=== PATIENT | male | born 1955 | race African-American/Black ===

== ENCOUNTER → 2020-03-22 10:53 | Outpatient (BNVA) | payer OTHER, SELFPAY | PROVIDERS: PCP Nurse Practitioner Family; Visit Provider Urology | DX: Z76.89 Persons encountering health services in other specified circumstances (principal) ==

== ENCOUNTER → 2020-06-29 10:17 | Outpatient (REF) | payer OTHER, SELFPAY ==
--- NOTE | 2020-06-29 09:30 | ECG_ITS ---
Hook-up date: 2020-06-29 10:33:00 Duration: 47:59:00 Test Indications: PAC'S Medications: [id number] QRS complexes 9 Ventricular ectopics which represent <1 % of total QRS comp. 255 Supraventricular ectopics which represent <1 % of total QRS comp. * Paced QRS complexs which represent % of total QRS comp. VENTRICULAR ECTOPY 2 Isolated 0 Bigeminal Cycles 0 Couplets 1 Runs 7 Beats in Runs 7 Beats LONGEST at 173 BPM at 18:51:24 2020-06-29 7 Beats FASTEST at 173 BPM at 18:51:24 2020-06-29 SUPRAVENTRICULAR ECTOPY 248 Isolated 2 Couplets 1 Runs 3 Beats in Runs 3 Beats LONGEST at 148 BPM at 18:04:10 2020-06-29 3 Beats FASTEST at 148 BPM at 18:04:10 2020-06-29 HEART RATES 56 MIN at 05:04:20 2020-06-30 79 AVG 121 MAX at 18:59:43 2020-06-29 LONGEST RR 1.5120 secs at 20:00:40 2020-06-29 S-T LEVELS Channel 1 - 128 mm at 10:33:00 2020-06-29 - 128 mm at 10:33:00 2020-06-29 Channel 2 - 128 mm at 10:33:00 2020-06-29 - 128 mm at 10:33:00 2020-06-29 Channel 3 - 128 mm at 02:95:21 -- - 128 mm at 02:95:21 Underlying rhythm is sinus; Average ventricular rate 79/min; range 56-121/min; Occasional supraventricular ectopy; One short run of NSVT -7 beats; Patient did not report any symptoms in the diary Referred By: Sancho Rosenthal Overread By: SANCHO ROSENTHAL
== END ==
LOC: HO.CARD 10:17
PROVIDERS: PCP Nurse Practitioner Family; Visit Provider Internal Medicine
DX: I49.1 Atrial premature depolarization (principal)
CPT/HCPCS: 93225; 93226

== ENCOUNTER → 2020-08-02 08:18 | Outpatient (BNVA) | payer OTHER, SELFPAY | PROVIDERS: PCP Internal Medicine Endocrinology, Diabetes & Metabolism; Visit Provider Internal Medicine | DX: I49.8 Other specified cardiac arrhythmias (principal); I49.3 Ventricular premature depolarization; I10 Essential (primary) hypertension; E66.01 Morbid (severe) obesity due to excess calories | CPT/HCPCS: 93005; 99212 ==

== ENCOUNTER → 2021-04-03 11:07 | Outpatient (BNVA) | payer OTHER, SELFPAY | PROVIDERS: PCP Internal Medicine Endocrinology, Diabetes & Metabolism; Visit Provider Urology | DX: N50.3 Cyst of epididymis (principal) | CPT/HCPCS: 99212 ==

== ENCOUNTER → 2021-05-14 15:23 | Outpatient (BNVA) | payer OTHER, SELFPAY | PROVIDERS: PCP Internal Medicine Endocrinology, Diabetes & Metabolism; Visit Provider Urology ==

== ENCOUNTER → 2021-07-15 12:38 | Outpatient (REF) | payer OTHER, SELFPAY ==
--- NOTE | 2021-07-15 12:42 | ECG_ITS ---
Hook-up date: 2021-07-15 12:52:00 Duration: 45:44:00 Test Indications: CARDIAC ARRHYTHMIAS Medications: [id number] QRS complexes * Ventricular ectopics which represent % of total QRS comp. 66 Supraventricular ectopics which represent <1 % of total QRS comp. * Paced QRS complexs which represent % of total QRS comp. VENTRICULAR ECTOPY * Isolated * Bigeminal Cycles * Couplets * Runs * Beats in Runs * Beats LONGEST at * BPM at :: -- * Beats FASTEST at * BPM at :: -- SUPRAVENTRICULAR ECTOPY 62 Isolated 2 Couplets 0 Runs 0 Beats in Runs * Beats LONGEST at * BPM at :: -- * Beats FASTEST at * BPM at :: -- HEART RATES 61 MIN at 01:12:38 2021-07-16 84 AVG 139 MAX at 12:54:02 2021-07-15 LONGEST RR 1.0960 secs at 11:00:12 2021-07-16 S-T LEVELS Channel 1 - 128 mm at 12:52:00 2021-07-15 - 128 mm at 12:52:00 2021-07-15 Channel 2 - 128 mm at 12:52:00 2021-07-15 - 128 mm at 12:52:00 2021-07-15 Channel 3 - 128 mm at 03:21:11 -- - 128 mm at 03:21:11 Underlying rhythm is sinus; Average ventricular rate 84/min; range 61-139/min; Rare supraventricular ectopy; No sustained arrhythmias. Chest pain in diary associated with sinus rhythm on EKG. Referred By: Sancho Rosenhtal Overread By: SANCHO ROSENTHAL
== END ==
LOC: HO.CARD 12:38
PROVIDERS: PCP Nurse Practitioner Family; Visit Provider Internal Medicine
DX: I49.8 Other specified cardiac arrhythmias (principal)
CPT/HCPCS: 93225; 93226

== ENCOUNTER → 2021-07-17 09:40 | Outpatient (REF) | payer OTHER, SELFPAY ==
--- NOTE | 2021-07-17 09:42 | CA_ITS ---
Transthoracic Echocardiogram Patient (Last, First, Middle): Diego Aviles, Gender: Male Date of : 1955 Age: 66 Procedure Date: 07/17/2021 Procedure Type: Transthoracic Echocardiogram Location: OP Height: 180.34 cm Weight: 143.79 kg BSA: 2.56 m2 Heart Rate: bpm BP: 130 / 88 mmHg Supervisor Cordu[employer] Cutting: MICHELLE Referring MD: Tang Rouse MD Payroll And Benefits Specialist: Shimon Og MD Symptoms: I49.8 - Other specified cardiac arrhythmias Study Quality: Technically Difficult ECG Rhythm: Sinus Conclusions: - 1. Normal LV systolic function with mild LVH with grade 1 diastolic dysfunction 2. Cardiac valvular Doppler is within normal limits 3. Normal RV systolic pressure 4. No gross pericardial effusion Findings Left Ventricle Normal left ventricular size and systolic function. There is mildly increased left ventricular wall thickness. The visually estimated ejection fraction is between 60-65%. Regional wall motion abnormalities can not be excluded due to suboptimal endocardial definition. Spectral Doppler is indicative of an impaired relaxation filling pattern. E/E prime ratio is <8, consistent with normal filling pressures. Evidence suggests grade I (mild) diastolic dysfunction. Right Ventricle Normal right ventricular cavity size and systolic function. Atria The left atrium is likely dilated. Interatrial shunt cannot be excluded. The right atrium was not well visualized. Aortic Valve There is mild calcification of the aortic valve. There is mild thickening of the aortic valve. There is no aortic valve stenosis. The peak aortic gradient is 17 mmHg.The mean gradient is 10 mmHg. There is no aortic valve regurgitation. Mitral Valve There is mild anterior and posterior mitral leaflet thickening. There is trace mitral valve regurgitation. There is no mitral valve stenosis. Pulmonic Valve The pulmonic valve was not well visualized. Tricuspid Valve Likely normal tricuspid valve structure and function. There is trace tricuspid valve regurgitation. The right ventricular systolic pressure is normal. The right ventricular systolic pressure is 14 mmHg. Normal right atrial pressure. There is no evidence of pulmonary hypertension. Great Vessels All visible segments of the aorta are normal in size. The pulmonary artery was not well visualized. Venous The inferior vena cava is normal in size and collapses greater than 50% with inspiration. Pericardium/Pleural There is no evidence of pericardial effusion. Prior Study Comparison No significant change compared to prior study dated: 06/28/2019. Measurements 2D Linear Measurements IVSd: 1.26 0.6-0.9/0.6-1.0 cm LVIDd: 4.69 3.9-5.3/4.2-5.9 cm LVIDd Index: 1.83 2.4-3.2/2.2-3.1 cm/m2 LVIDs: 3.13 2.0-3.6 cm LVPWd: 1.07 0.7-1.1 cm Ao Root: 3.30 2.1-3.5 cm LA Diam: 3.00 2.7-3.8/3.0-4.0 cm LAIDs Index: 1.17 1.5-2.3 cm/m2 LV Mass: 252.50 67-162/88-224 g LV Mass Index: 98.63 43-95/49-115 g/m2 LVOT Diam: 2.10 3.0+(-)1.3 cm 2D Systolic Function EF 4C: 61.20 >55% EF 2C: 61.00 >55% EF BiP: 59.90 >55% Mitral Valve MV Pk E: 0.62 MV PK A: 0.89 MV Decel Time: 185.00 E/A: 0.70 E'Lateral: 9.14 E'Medial: 7.94 E/E' Med: 7.90 E/E' Lat: 6.80 PHT: 54.00 MVA PHT: 4.07 Decel [place]: 3.38 Aortic Valve AoV Pk [place]: 2.08 AoV Mn [place]: 1.48 AoV VTI: 0.45 AoV Pk Grad: 17.00 Aov Mn Grad: 10.00 RONNI Cont.VTI: 2.33 LVOT LVOT Pk [place]: 1.41 LVOT Mn [place]: 0.99 LVOT VTI: 0.30 LVOT Pk Grad: 8.00 LVOT Mn Grad: 5.00 LVOT Diam: 2.10 LVOT Area: 3.46 Diastolic Function MV Pk E: 0.62 MV Pk A: 0.89 E/A: 0.70 E'Medial: 7.94 E/E' Med: 7.90 E' Laterial: 9.14 E/E' Lat: 6.80 Right Ventricle TAPSE (mm): 23.40 TVS' Lar[place]: 14.50 Tricuspid Valve TR Pk Lar[place]: 1.64 TR Pk Grad: 11.00 RA Press: 3.00 RVSP: 14.00 Great Vessels Aorta Ao Root-2D: 3.30 2.0-3.7 cm Ao Asc: 3.70 2.1-3.4 cm Ao Arch: 3.30 Pulmonary Valve PV Pk Laron: 1.33 Peak PV Grad: 7.00 Updated in Other Vendor System with Status of Final Shimon Og MD electronically signed on 07/17/2021 2:02:16 PM with status of Final
== END ==
LOC: HO.CARD 09:40
PROVIDERS: PCP Nurse Practitioner Family; Visit Provider Internal Medicine
DX: I49.8 Other specified cardiac arrhythmias (principal)
CPT/HCPCS: 93306

== ENCOUNTER → 2021-08-05 08:41 | Outpatient (BNVA) | payer OTHER, SELFPAY | PROVIDERS: PCP Internal Medicine Endocrinology, Diabetes & Metabolism; Visit Provider Internal Medicine | DX: I49.8 Other specified cardiac arrhythmias (principal); I49.3 Ventricular premature depolarization; I10 Essential (primary) hypertension; E66.01 Morbid (severe) obesity due to excess calories; G47.33 Obstructive sleep apnea (adult) (pediatric); Z99.89 Dependence on other enabling machines and devices; Z68.42 Body mass index [BMI] 45.0-49.9, adult | CPT/HCPCS: 93005; 99212 ==

== ENCOUNTER 2022-08-18 06:05 | Outpatient (REF) | payer OTHER, SELFPAY ==
[2022-08-18 07:25] LABS: Hematocrit 46.5 % (42.0-52.0); Hemoglobin 14.6 g/dl (14.0-18.0); Mean Corpuscular HGB Conc 31.4 g/dl (31.0-36.0); Mean Corpuscular Hemoglobin 26.3 pg (27.0-33.0); Mean Corpuscular Volume 83.8 fL (80.0-98.0); Mean Platelet Volume 10.6 fL (9.4-12.4); Platelet Count 296 X10*3/uL (160-400); Red Blood Count 5.55 X10*6/uL (4.60-5.80); Red Cell Distribution Width 15.8 % (11.0-16.0); White Blood Count 7.3 X10*3/uL (4.8-10.8)
[2022-08-25 11:38] LABS: Testosterone, Total 416 ng/dL (250-1100)
== END 2022-08-18 06:06 | disposition home or self-care (01) ==
LOC: HO.LAB 06:05
PROVIDERS: PCP Nurse Practitioner Family; Visit Provider Urology
DX: Z12.5 Encounter for screening for malignant neoplasm of prostate (principal); E29.1 Testicular hypofunction
CPT/HCPCS: 36415; 84153; 84403; 85027

== ENCOUNTER 2022-09-03 13:17 | Outpatient (REF) | payer OTHER, SELFPAY ==
[2022-09-03 17:18] LABS: Urine Cytology See Pathology rpt
== END 2022-09-03 13:18 | disposition home or self-care (01) ==
LOC: HO.LAB 13:17
PROVIDERS: PCP Nurse Practitioner Family; Visit Provider Urology
DX: R31.29 Other microscopic hematuria (principal); N40.1 Benign prostatic hyperplasia with lower urinary tract symptoms; N13.8 Other obstructive and reflux uropathy
CPT/HCPCS: 51798; 88112; 99212

== ENCOUNTER → 2022-10-02 10:05 | Outpatient (BNVA) | payer OTHER, SELFPAY | PROVIDERS: PCP Nurse Practitioner Family; Referring Provider Nurse Practitioner Family; Visit Provider Internal Medicine | DX: I49.8 Other specified cardiac arrhythmias (principal); I49.3 Ventricular premature depolarization; I10 Essential (primary) hypertension; E66.01 Morbid (severe) obesity due to excess calories; G47.33 Obstructive sleep apnea (adult) (pediatric); Z99.89 Dependence on other enabling machines and devices; Z68.42 Body mass index [BMI] 45.0-49.9, adult | CPT/HCPCS: 93005; 99212 ==

== ENCOUNTER 2023-02-19 05:52 | Outpatient (REF) | payer OTHER, SELFPAY ==
[2023-02-19 07:04] LABS: Hematocrit 49.1 % (42.0-52.0); Hemoglobin 15.2 g/dl (14.0-18.0); Mean Corpuscular Hemoglobin 25.5 pg (27.0-33.0); Mean Corpuscular Volume 82.4 fL (80.0-98.0); Platelet Count 325 X10*3/uL (160-400); Red Blood Count 5.96 X10*6/uL (4.60-5.80); Red Cell Distribution Width 16.9 % (11.0-16.0); White Blood Count 7.8 X10*3/uL (4.8-10.8)
[2023-02-19 07:34] LABS: Prostate Specific Antigen 1.77 ng/mL (<0.05-4.0)
[2023-02-25 00:59] LABS: Testosterone, Total 462 ng/dL (250-1100)
== END 2023-02-19 05:53 | disposition home or self-care (01) ==
LOC: HO.LAB 05:52
PROVIDERS: PCP Nurse Practitioner Family; Visit Provider Urology
DX: Z12.5 Encounter for screening for malignant neoplasm of prostate (principal); E29.1 Testicular hypofunction
CPT/HCPCS: 36415; 84153; 84403; 85027

== ENCOUNTER 2023-03-05 11:11 | Outpatient (AMB) | payer OTHER, SELFPAY ==
--- NOTE | 2023-03-05 11:12 | MHC.OFFVIS ---
Intake Intake Visit Reasons: 6m/PSA/CBC/Testosterone(set) Intake Note: Patient is present for LABS follow Up Urology Med: Tadalafil, finasteride, Testosterone Blood Thinner: Aspirin Bowling Floor Manager Required: No Allergies simvastatin [Simvastatin] Allergy (Intermediate, Verified 10/02/22 10:16) ELEVATED K+ LEVEL HPI HPI Comments History of Present Illness Details Diego is a pleasant male.? He is a patient of Dr. Bhagat.? He seen for following urologic conditions - microscopic hematuria - hypogonadism - lower urinary tract symptoms - erectile dysfunction Telemedicine Evaluation 15 min Consultation [employer] Asa Video attempted Discussed lab results 6m lab work Otherwise stable management for hypogonadism and lower urinary tract symptoms [facility] 0.4 cc testosterone IM weekly Injection Thursday Lab day Lab work has not been checked during COVID Labs 02/27 T 230 PSA 0.32, 08/28 T 420 P 1.3 H 46, 02/28 T 460 P 1.7 H 49 LUTS therapy finasteride Microscopic Hematuria:? [facility] ? Minimal nocturia and happy ? Can discuss testosterone when see him in 12 months ? 09/24 PSA .9 ? Microscopic hematuria was diagnosed during routine UA. ? Since the last visit the patient has has not noticed gross hematuria, does not test positive for microscopic hematuria ? Radiology report 02/23 CT , no genitourinary abnormality, large prostate. ? Other investigations 12/23 BUN/Cr - 1.1. ? Cystoscopy findings 02/23 large prostate. [facility] Medical History CORKY on CPAP Diabetes Essential hypertension Morbid obesity PVCs (premature ventricular contractions) Atrial arrhythmia Surgical History Hx of total knee replacement History of cardiac catheterization (~07/15/17) History of umbilical hernia repair (~2009) History of colonoscopy (~2009) Family History Father Prostate CA Mother No problems noted. Social History Patient Tobacco Use Status: Former Tobacco user Quit Date: 13 1/2 years Review of Systems Const All systems reviewed & are unremarkable except as noted in HPI and below Reports no additional complaints Resp Reports no additional complaints GI Reports no additional complaints Reports as per HPI Musc Reports no additional complaints Physical Exam Telemedicine evaluation Appropriate responses Regular breathing rate and rhythm HEENT Head: Yes normal to inspection Ears: hearing grossly normal bilaterally Eyes General: appearance normal, both eyes and all related structures Neck Neck: Yes normal visual inspection Chest Chest palpation & inspection: normal inspection of the chest Resp Effort & Inspection: normal respiratory effort and able to speak in complete sentences Assessment & Plan Assessment & Plan (1) Hypogonadism in male: Code(s): E29.1 - Testicular hypofunction (2) BPH w urinary obs/LUTS: Code(s): N40.1 - Benign prostatic hyperplasia with lower urinary tract symptoms; N13.8 - Other obstructive and reflux uropathy Plan Continue good response Six month follow-up Orders: Orders Testosterone, Total 6 Months E29.1 - Testicular hypofunction Complete Blood Count no Diff 6 Months E29.1 - Testicular hypofunction Prostate Specific Antigen 6 Months E29.1 - Testicular hypofunction Patient Instructions: Imaging studies, laboratory and physical exam results were discussed and reviewed in detail. No major barriers to patient understanding were identified. An opportunity to ask questions regarding the treatment plan was provided. All questions were answered. The patient expressed understanding and agreement with the above treatment plan. The patient is aware they should contact our office by phone for worsening of their current condition or the appearance of new urologic symptoms. Compliance is encouraged with any medications and followup testing that is ordered. It is a privilege to participate in the urologic care of your patient. If you have any questions or concerns regarding treatment for the above conditions, or other urologic issues, please do not hesitate to contact me. The office telephone contact is [phone]. This note is constructed using voice recognition software. While every effort has been made to ensure accuracy computer support specialist errors may have been included. Yours sincerely, Dr Suleiman Mitchell MD, RIVAS [facility] - Urology Providers of Expert, Compassionate Care for the Genitourinary System Telehealth Telehealth Location of provider rendering services: practice address Location of patient: address on file Patient Identification confirmed using: Name, : Yes Telehealth method: video Patient verbally consented to treatment: Yes Patient verbally consented to billing insurance company: Yes Patient informed of any privacy concerns related to visit: Yes Coding Level of Care Code Tele Est Pt Level 3 (46067) Diagnoses Hypogonadism in male E29.1 BPH w urinary obs/LUTS N40.1; N13.8
== END 2023-03-05 15:29 | disposition home or self-care (01) ==
LOC: HO.HUSH 11:11
PROVIDERS: PCP Nurse Practitioner Family; Visit Provider Urology
DX: E29.1 Testicular hypofunction (principal); N40.1 Benign prostatic hyperplasia with lower urinary tract symptoms; N13.8 Other obstructive and reflux uropathy
CPT/HCPCS: 99213

== ENCOUNTER → 2023-03-05 11:11 | Outpatient (BNVA) | payer OTHER, SELFPAY | PROVIDERS: PCP Nurse Practitioner Family; Visit Provider Urology ==

== ENCOUNTER 2023-09-01 10:09 | Outpatient (REF) | payer OTHER, SELFPAY ==
[2023-09-01 10:51] LABS: Hematocrit 48.1 % (42.0-52.0); Mean Corpuscular HGB Conc 31.2 g/dl (31.0-36.0); Mean Corpuscular Hemoglobin 24.6 pg (27.0-33.0); Mean Corpuscular Volume 78.9 fL (80.0-98.0); Platelet Count 264 X10*3/uL (160-400); Red Cell Distribution Width 18.1 % (11.0-16.0); White Blood Count 8.1 X10*3/uL (4.8-10.8)
[2023-09-01 11:44] LABS: Prostate Specific Antigen 1.71 ng/mL (<0.05-4.0)
[2023-09-06 14:03] LABS: Testosterone, Total 781 ng/dL (250-1100)
== END 2023-09-01 10:10 | disposition home or self-care (01) ==
LOC: HO.LAB 10:09
PROVIDERS: PCP Nurse Practitioner Family; Visit Provider Urology
DX: E29.1 Testicular hypofunction (principal); Z12.5 Encounter for screening for malignant neoplasm of prostate
CPT/HCPCS: 36415; 84153; 84403; 85027

== ENCOUNTER → 2023-09-02 10:11 | Outpatient (REF) | payer OTHER, SELFPAY ==
--- NOTE | 2023-09-02 10:14 | HM_ITS ---
* Total monitoring time 3 days. * Underlying rhythm is sinus with an average rate of 78/Min. Range 57 to 108/Min. * Rare supraventricular ectopy. * One isolated PVC. * No significant pauses or AV blocks. * Patient marker used in association with sinus rhythm. * Palpitations in patient diary correlates with sinus rhythm. MTDD
== END ==
LOC: HO.CARD 10:11
PROVIDERS: PCP Nurse Practitioner Family; Visit Provider Internal Medicine
DX: I49.8 Other specified cardiac arrhythmias (principal)
CPT/HCPCS: 93242

== ENCOUNTER → 2023-09-02 10:14 | Outpatient (BNV) | payer OTHER, SELFPAY | PROVIDERS: PCP Nurse Practitioner Family; Visit Provider Internal Medicine | DX: I49.8 Other specified cardiac arrhythmias (principal) | CPT/HCPCS: 93244 ==

== ENCOUNTER 2023-09-08 11:07 | Outpatient (AMB) | payer OTHER, SELFPAY ==
--- NOTE | 2023-09-08 11:12 | A.OFFVIS_ITS ---
Intake Intake Visit Reasons: 6M PSA/Testo(set)Confirmed Intake Note: Patient is Present for Follow Up Urology Medication: Testosterone, Tadalafil, Finasteride Antibiotic Allergies: none Blood Thinners: Aspirin Allergies simvastatin [Simvastatin] Allergy (Intermediate, Verified 09/08/23 11:13) ELEVATED K+ LEVEL Medication List - Last Reconciled 09/08/23 by Suleiman Mitchell MD aspirin 81 mg PO DAILY cholecalciferol (vitamin D3) 10 mcg PO DAILY finasteride 5 mg PO DAILY lisinopril 30 mg PO DAILY metformin 500 mg PO DAILY metoprolol tartrate 50 mg PO BID omeprazole 20 mg PO DAILY tadalafil (Cialis) 2.5 mg PO DAILY testosterone (AndroGel) 4 pumps topical DAILY 28 days HPI HPI Comments History of Present Illness Details Diego is a pleasant male.? He is a patient of Dr. Bhagat.? He seen for following urologic conditions - microscopic hematuria - hypogonadism - lower urinary tract symptoms - erectile dysfunction Discussed lab results Stable 6m lab work Otherwise stable management for hypogonadism and lower urinary tract symptoms Medications through [place] [facility]adism [facility] 0.4 cc testosterone IM weekly Injection Thursday Lab day Lab work has not been checked during COVID Labs 02/27 T 230 PSA 0.32, 08/28 T 420 P 1.3 H 46, 02/28 T 460 P 1.7 H 49, 08/29 781 1.7 48 LUTS therapy finasteride Microscopic Hematuria:? Has been working with [employer] for hypogonadism ? Minimal nocturia and happy ? Can discuss testosterone when see him in 12 months ? 09/24 PSA .9 ? Microscopic hematuria was diagnosed during routine UA. ? Since the last visit the patient has has not noticed gross hematuria, does not test positive for microscopic hematuria ? Radiology report 02/23 CT , no genitourinary abnormality, large prostate. ? Other investigations 12/23 BUN/Cr - 1.1. ? Cystoscopy findings 02/23 large prostate. [facility] Medical History CORKY on CPAP Diabetes Essential hypertension Morbid obesity PVCs (premature ventricular contractions) Atrial arrhythmia Surgical History Hx of total knee replacement History of cardiac catheterization (~07/15/17) History of umbilical hernia repair (~2009) History of colonoscopy (~2009) Family History Father Prostate CA Mother No problems noted. Social History Patient Tobacco Use Status: Former Tobacco user Quit Date: 13 1/2 years Review of Systems Const Denies chills and Denies fever(s) Card Reports no additional complaints and Denies syncope Resp Denies cough GI Denies abdominal pain and Denies heartburn Reports as per HPI and Denies change in libido Neuro Denies syncope Psych Denies change in libido Endo Denies change in libido Physical Exam Const General: cooperative, healthy appearing, comfortable and no acute distress Orientation/consciousness: patient oriented x3 HEENT Face and sinus: Yes normal facial exam Mouth: moist mucous membranes Neck Neck: Yes normal visual inspection, Yes full ROM and Yes trachea midline Chest Chest palpation & inspection: normal inspection of the chest Resp Effort & Inspection: normal respiratory effort, able to speak in complete sentences and no respiratory distress GI Inspection: Yes normal to inspection Back/Spine/Pelvis Cervical Spine: normal cervical lordosis Thoracic/Lumbar Spine: thoracic and lumbar spine normal to inspection Skin General skin exam: no rashes or lesions noted Neuro General: patient oriented x3, gait normal, tone normal and moves all extremities Extrem General: Yes normal to inspection and Yes capillary refill normal Assessment & Plan Assessment & Plan (1) Hypogonadism in male: Code(s): E29.1 - Testicular hypofunction (2) BPH w urinary obs/LUTS: Code(s): N40.1 - Benign prostatic hyperplasia with lower urinary tract symptoms; N13.8 - Other obstructive and reflux uropathy Plan Six-month follow-up Orders: Orders Prostate Specific Antigen 6 Months E29.1 - Testicular hypofunction Complete Blood Count no Diff 6 Months E29.1 - Testicular hypofunction Testosterone, Total 6 Months E29.1 - Testicular hypofunction Patient Instructions: Imaging studies, laboratory and physical exam results were discussed and reviewed in detail. No major barriers to patient understanding were identified. An opportunity to ask questions regarding the treatment plan was provided. All questions were answered. The patient expressed understanding and agreement with the above treatment plan. The patient is aware they should contact our office by phone for worsening of their current condition or the appearance of new urologic symptoms. Compliance is encouraged with any medications and followup testing that is ordered. It is a privilege to participate in the urologic care of your patient. If you have any questions or concerns regarding treatment for the above conditions, or other urologic issues, please do not hesitate to contact me. The office telephone contact is [phone]. This note is constructed using voice recognition software. While every effort has been made to ensure accuracy optometric tech errors may have been included. Yours sincerely, Dr Suleiman Mitchell MD, RIV[facility] - Urology Providers of Expert, Compassionate Care for the Genitourinary System Coding Level of Care Code Est Pt Level 3 (45489) Diagnoses Hypogonadism in male E29.1 BPH w urinary obs/LUTS N40.1; N13.8
== END 2023-09-08 11:50 | disposition home or self-care (01) ==
PROVIDERS: PCP Nurse Practitioner Family; Visit Provider Urology
DX: E29.1 Testicular hypofunction (principal); N40.1 Benign prostatic hyperplasia with lower urinary tract symptoms; N13.8 Other obstructive and reflux uropathy
CPT/HCPCS: 99213

== ENCOUNTER → 2023-09-08 11:07 | Outpatient (BNVA) | payer OTHER, SELFPAY | PROVIDERS: PCP Nurse Practitioner Family; Visit Provider Urology | DX: N40.1 Benign prostatic hyperplasia with lower urinary tract symptoms (principal); N13.8 Other obstructive and reflux uropathy; E29.1 Testicular hypofunction | CPT/HCPCS: 99212 ==

== ENCOUNTER 2023-10-14 09:34 | Outpatient (AMB) | payer OTHER, SELFPAY ==
--- NOTE | 2023-10-14 09:55 | MHC.OFFVIS ---
Vital Signs 10/14/23 09:56 Height 5 ft 11 in Weight 320 lb BMI 44.6 BP 128/70 Blood Pressure Location Lt brachial Position Sitting Pulse 75 Pulse Source Monitor Pulse Oximetry (%) 98 Oxygen Delivery Method Room Air Intake Visit Reasons: 1 yr f/up s/p; holter Allergies simvastatin [Simvastatin] Allergy (Intermediate, Verified 09/08/23 11:13) ELEVATED K+ LEVEL Medication List - Last Reconciled 10/14/23 by Tang Rouse MD aspirin 81 mg PO DAILY cholecalciferol (vitamin D3) 10 mcg PO DAILY finasteride 5 mg PO DAILY lisinopril 30 mg PO DAILY metformin 500 mg PO DAILY metoprolol tartrate 50 mg PO BID omeprazole 20 mg PO DAILY tadalafil (Cialis) 2.5 mg PO DAILY testosterone (AndroGel) 4 pumps topical DAILY 28 days HPI Comments Details: Diego returns for follow-up. In the past, has been seen regarding chest pain and palpitations. He has undergone cardiac catheterization in the past but no significant CAD. Holter had shown premature atrial contractions. He is also morbidly obese. He states that he is generally doing well. No specific complaints like angina or shortness of breath or any other cardiac complaints. [facility] Medical History CORKY on CPAP Diabetes Essential hypertension Morbid obesity PVCs (premature ventricular contractions) Atrial arrhythmia Surgical History Hx of total knee replacement History of cardiac catheterization (~07/15/17) History of umbilical hernia repair (~2009) History of colonoscopy (~2009) Family History Father Prostate CA Mother No problems noted. Social History Patient Tobacco Use Status: Former Tobacco user Quit Date: 13 1/2 years Review of Systems Const Denies weakness ENT Denies dizziness Card Denies chest pain, Denies chest pain with activity, Denies syncope, Denies rapid heart rate, Denies pedal edema, Denies edema, Denies leg edema, Denies lightheadedness, Denies palpitations, Denies dyspnea, Denies dyspnea on exertion and Denies orthopnea Resp Denies cough, Denies dyspnea and Denies dyspnea on exertion GI Denies hematochezia and Denies change in stool character Musc Denies abnormal gait, Denies muscle cramps, Denies muscle weakness, Denies numbness, Denies radiating pain into limb and Denies tingling Neuro Denies abnormal gait, Denies dizziness, Denies syncope, Denies numbness, Denies tingling and Denies weakness Endo Denies palpitations Physical Exam Vital Signs: Last Vital Signs Pulse 75 10/14/23 09:56 BP 128/70 10/14/23 09:56 Pulse Ox 98 10/14/23 09:56 Oxygen Delivery Method Room Air 10/14/23 09:56 BMI result Body Mass Index 44.6 Const General: comfortable and no acute distress Orientation/consciousness: patient oriented x3 HEENT Other: Unremarkable Head: Yes normal to inspection Neck Neck: Yes normal visual inspection Chest Chest palpation & inspection: normal inspection of the chest Resp Auscultation: clear to auscultation bilaterally Cardio Palpation: normal PMI Heart sounds: S1 normal heart sound present, S2 normal heart sound present, no gallops, no murmurs and no rubs GI Palpation (GI): Soft to palpation Back/Spine/Pelvis Other: unremarkable Skin General skin exam: no rashes or lesions noted Neuro General: patient oriented x3 Extrem General: Yes normal to inspection Psych Mental Status: mental status grossly normal Office Procedures EKG Details: EKG with sinus rhythm at 75/Min; no significant ST-T changes and otherwise unremarkable[place]. [id number], Complete Assessment & Plan Assessment & Plan (1) Atrial arrhythmia: Code(s): I49.8 - Other specified cardiac arrhythmias Category: Medical Plan: In the past, Holter had shown frequent PACs. Last Holter looks unremarkable. Due to coexisting obesity as well as obstructive sleep apnea, increased risk of atrial fibrillation in the future. (2) PVCs (premature ventricular contractions): Code(s): I49.3 - Ventricular premature depolarization Category: Medical Plan: No recent issues. (3) Essential hypertension: Code(s): I10 - Essential (primary) hypertension Category: Medical Plan: Stable. On lisinopril. (4) Morbid obesity: Code(s): E66.01 - Morbid (severe) obesity due to excess calories Category: Medical Plan: No major changes compared to before. Doubt if it is going to change much. (5) CORKY on CPAP: Code(s): G47.33 - Obstructive sleep apnea (adult) (pediatric); Z99.89 - Dependence on other enabling machines and devices Category: Medical Plan: CPAP. Coding Level of Care Code Est Pt Level 4 (74638) Diagnoses Atrial arrhythmia I49.8 PVCs (premature ventricular contractions) I49.3 Essential hypertension I10 Morbid obesity E66.01 CORKY on CPAP G47.33; Z99.89 CPT Codes EKG - CPT: 48784-[id number], Complete ([id number])
[2023-10-14 09:56] VITALS: BP 128/70; PULSE 75; O2SAT 98; BMI 44.6
== END 2023-10-14 10:08 | disposition home or self-care (01) ==
PROVIDERS: PCP Nurse Practitioner Family; Visit Provider Internal Medicine
DX: I49.8 Other specified cardiac arrhythmias (principal); I49.3 Ventricular premature depolarization; I10 Essential (primary) hypertension; E66.01 Morbid (severe) obesity due to excess calories; G47.33 Obstructive sleep apnea (adult) (pediatric); Z99.89 Dependence on other enabling machines and devices
CPT/HCPCS: 93010; 99214

== ENCOUNTER → 2023-10-14 09:34 | Outpatient (BNVA) | payer OTHER, SELFPAY | PROVIDERS: PCP Nurse Practitioner Family; Visit Provider Internal Medicine | DX: I49.8 Other specified cardiac arrhythmias (principal); I49.3 Ventricular premature depolarization; I10 Essential (primary) hypertension; E66.01 Morbid (severe) obesity due to excess calories; G47.33 Obstructive sleep apnea (adult) (pediatric); Z99.89 Dependence on other enabling machines and devices; Z68.41 Body mass index [BMI] 40.0-44.9, adult | CPT/HCPCS: 93005; 99212 ==

== ENCOUNTER 2024-03-07 15:54 | Outpatient (REF) | payer OTHER, SELFPAY ==
[2024-03-07 16:50] LABS: Hematocrit 51.8 % (42.0-52.0); Hemoglobin 16.3 g/dl (14.0-18.0); Mean Corpuscular HGB Conc 31.5 g/dl (31.0-36.0); Mean Corpuscular Hemoglobin 24.5 pg (27.0-33.0); Mean Corpuscular Volume 77.9 fL (80.0-98.0); Mean Platelet Volume 9.3 fL (9.4-12.4); Platelet Count 262 X10*3/uL (160-400); Red Blood Count 6.65 X10*6/uL (4.60-5.80); Red Cell Distribution Width 19.4 % (11.0-16.0); White Blood Count 7.6 X10*3/uL (4.8-10.8)
[2024-03-07 17:28] LABS: Prostate Specific Antigen 1.89 ng/mL (<0.05-4.0)
[2024-03-13 14:49] LABS: Testosterone, Total 520 ng/dL (250-1100)
== END 2024-03-07 15:55 | disposition home or self-care (01) ==
LOC: HO.LAB 15:54
PROVIDERS: PCP Nurse Practitioner Family; Visit Provider Urology
DX: E29.1 Testicular hypofunction (principal); Z12.5 Encounter for screening for malignant neoplasm of prostate
CPT/HCPCS: 36415; 84153; 84403; 85027

== ENCOUNTER 2024-04-08 13:50 | Outpatient (AMB) | payer OTHER, SELFPAY ==
--- NOTE | 2024-04-08 13:50 | MHC.OFFVIS ---
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 He is a patient of Dr. Bhagat.? 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 Has been working with [facility] for hypogonadism ? Minimal nocturia and happy ? Can discuss testosterone when see him in 12 months ? 09/24 PSA .9 ? Microscopic hematuria was diagnosed during routine UA. ? Since the last visit the patient has has not noticed gross hematuria, does not test positive for microscopic hematuria ? Radiology report 02/23 CT , no genitourinary abnormality, large prostate. ? Other investigations 12/23 BUN/Cr - 1.1. ? Cystoscopy findings 02/23 large prostate. [facility]LY [facility], [facility]–1983 Medical History CORKY on CPAP Diabetes Essential hypertension Morbid obesity PVCs (premature ventricular contractions) Atrial arrhythmia Surgical History Hx of total knee replacement History of cardiac catheterization (~07/15/17) History of umbilical hernia repair (~2009) History of colonoscopy (~2009) Family History Father Prostate CA Mother No problems noted. Social History Patient Tobacco Use Status: Former Tobacco user Review of Systems Const All systems reviewed & are unremarkable except as noted in HPI and below Reports no additional complaints Resp Reports no additional complaints GI Reports no additional complaints Reports as per HPI Musc Reports no additional complaints Physical Exam Telemedicine evaluation Appropriate responses Regular breathing rate and rhythm HEENT Head: Yes normal to inspection Ears: hearing grossly normal bilaterally Eyes General: appearance normal, both eyes and all related structures Neck Neck: Yes normal visual inspection Chest Chest palpation & inspection: normal inspection of the chest Resp Effort & Inspection: normal respiratory effort and able to speak in complete sentences Telehealth Telehealth Telehealth Platform: [employer] Location of provider rendering services: practice address Location of patient: address on file Patient Identification confirmed using: Name, : Yes Telehealth method: video Patient verbally consented to treatment: Yes Patient verbally consented to billing insurance company: Yes Patient informed of any privacy concerns related to visit: Yes Minutes spent on Phone/Video with Pt.: 15 Assessment & Plan Assessment & Plan (1) BPH w urinary obs/LUTS: Code(s): N40.1 - Benign prostatic hyperplasia with lower urinary tract symptoms; N13.8 - Other obstructive and reflux uropathy Category: Medical (2) Hypogonadism in male: Code(s): E29.1 - Testicular hypofunction Category: Medical Plan Six-month follow-up lab work Orders: Orders Prostate Specific Antigen 6 Months E29.1 - Testicular hypofunction Complete Blood Count no Diff 6 Months E29.1 - Testicular hypofunction Testosterone, Total 6 Months E29.1 - Testicular hypofunction Medications: Changed From tadalafil (Cialis) 2.5 mg PO DAILY E29.1 - Testicular hypofunction To tadalafil BIN N Group [facility] [id number] 5 mg PO DAILY 90 days 90 tabs 1RF E29.1 - Testicular hypofunction Patient Instructions: Imaging studies, laboratory and physical exam results were discussed and reviewed in detail. No major barriers to patient understanding were identified. An opportunity to ask questions regarding the treatment plan was provided. All questions were answered. The patient expressed understanding and agreement with the above treatment plan. The patient is aware they should contact our office by phone for worsening of their current condition or the appearance of new urologic symptoms. Compliance is encouraged with any medications and followup testing that is ordered. It is a privilege to participate in the urologic care of your patient. If you have any questions or concerns regarding treatment for the above conditions, or other urologic issues, please do not hesitate to contact me. The office telephone contact is [phone]. This note is constructed using voice recognition software. While every effort has been made to ensure accuracy linker up errors may have been included. Yours sincerely, Dr Sueliman Mitchell MD, [facility] - Urology Providers of Expert, Compassionate Care for the Genitourinary System Coding Level of Care Code Tele Est Pt Level 3 (73124) Diagnoses BPH w urinary obs/LUTS N40.1; N13.8 Hypogonadism in male E29.1
== END 2024-04-08 14:44 | disposition home or self-care (01) ==
LOC: HO.HUSH 13:50
PROVIDERS: PCP Nurse Practitioner Family; Visit Provider Urology
DX: N40.1 Benign prostatic hyperplasia with lower urinary tract symptoms (principal); N13.8 Other obstructive and reflux uropathy; E29.1 Testicular hypofunction
CPT/HCPCS: 99213

== ENCOUNTER → 2024-04-08 13:50 | Outpatient (BNVA) | payer OTHER, SELFPAY | PROVIDERS: PCP Nurse Practitioner Family; Visit Provider Urology ==

== ENCOUNTER 2024-10-05 06:09 | Outpatient (REF) | payer OTHER, SELFPAY ==
[2024-10-05 07:22] LABS: Hematocrit 53.1 % (42.0-52.0); Hemoglobin 16.4 g/dl (14.0-18.0); Mean Corpuscular HGB Conc 30.9 g/dl (31.0-36.0); Mean Corpuscular Hemoglobin 24.4 pg (27.0-33.0); Mean Platelet Volume 9.6 fL (9.4-12.4); Platelet Count 243 X10*3/uL (160-400); Red Blood Count 6.72 X10*6/uL (4.60-5.80); Red Cell Distribution Width 20.3 % (11.0-16.0); White Blood Count 7.6 X10*3/uL (4.8-10.8)
[2024-10-05 08:07] LABS: Prostate Specific Antigen 2.18 ng/mL (<0.05-4.0)
[2024-10-09 15:59] LABS: Testosterone, Total 252 ng/dL (250-1100)
== END 2024-10-05 06:10 | disposition home or self-care (01) ==
LOC: HO.LAB 06:09
PROVIDERS: PCP Nurse Practitioner Family; Visit Provider Urology
DX: E29.1 Testicular hypofunction (principal); Z12.5 Encounter for screening for malignant neoplasm of prostate
CPT/HCPCS: 36415; 84153; 84403; 85027

== ENCOUNTER 2024-12-02 10:36 | Outpatient (AMB) | payer OTHER, SELFPAY ==
--- NOTE | 2024-12-02 10:38 | A.OFFVIS_ITS ---
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 He is a patient of Dr. Bhagat.? He seen for following urologic conditions - microscopic hematuria - hypogonadism - lower urinary tract symptoms - erectile dysfunction Has been running high hematocrit Unable to do injectable testosterone Recommend testosterone pellets which will have reduced hematocrit variation He has restarted his shots and we can repeat lab work in six-month Has been on daily Cialis 5 mg Long discussion regarding weight loss [facility]adism [facility] 0.4 cc testosterone IM weekly Poor respond to testosterone gel with insufficient absorption Injection Thursday Lab day Lab work has not been checked during COVID Labs 02/27 T 230 PSA 0.32, 08/28 T 420 P 1.3 H 46, 02/28 T 460 P 1.7 H 49, 08/29 781 1.7 48, 09/30 252 2.1 53 LUTS therapy finasteride Microscopic Hematuria:? Has been working with [facility] for hypogonadism ? Minimal nocturia and happy ? Can discuss testosterone when see him in 12 months ? 09/24 PSA .9 ? Microscopic hematuria was diagnosed during routine UA. ? Since the last visit the patient has has not noticed gross hematuria, does not test positive for microscopic hematuria ? Radiology report 02/23 CT , no genitourinary abnormality, large prostate. ? Other investigations 12/23 BUN/Cr - 1.1. ? Cystoscopy findings 02/23 large prostate. [facility] Medical History CORKY on CPAP Diabetes Essential hypertension Morbid obesity PVCs (premature ventricular contractions) Atrial arrhythmia Surgical History Hx of total knee replacement History of cardiac catheterization (~07/15/17) History of umbilical hernia repair (~2009) History of colonoscopy (~2009) Family History Father Prostate CA Mother No problems noted. Social History Patient Tobacco Use Status: Former Tobacco user Review of Systems Const Denies chills and Denies fever(s) Card Reports no additional complaints and Denies syncope Resp Denies cough GI Denies abdominal pain and Denies heartburn Reports as per HPI and Denies change in libido Neuro Denies syncope Psych Denies change in libido Endo Denies change in libido Physical Exam Const General: cooperative, healthy appearing, comfortable and no acute distress Orientation/consciousness: patient oriented x3 HEENT Face and sinus: Yes normal facial exam Mouth: moist mucous membranes Neck Neck: Yes normal visual inspection, Yes full ROM and Yes trachea midline Chest Chest palpation & inspection: normal inspection of the chest Resp Effort & Inspection: normal respiratory effort, able to speak in complete sentences and no respiratory distress GI Inspection: Yes normal to inspection Back/Spine/Pelvis Cervical Spine: normal cervical lordosis Thoracic/Lumbar Spine: thoracic and lumbar spine normal to inspection Skin General skin exam: no rashes or lesions noted Neuro General: patient oriented x3, gait normal, tone normal and moves all extremities Extrem General: Yes normal to inspection and Yes capillary refill normal Results AMB Urinalysis, Automated UA Leukoctes 0 Maryann/uL Last Edit by Yvonne Riley MA on 12/02/24 15:43 UA Nitrite Negative Last Edit by Yvonne Riley MA on 12/02/24 15:43 UA Urobilinogen 3.5 mg/dL Last Edit by Yvonne Riley MA on 12/02/24 15:43 UA Protein 0 mg/dL Last Edit by Yvonne Riley MA on 12/02/24 15:43 UA pH 6.0 Last Edit by Yvonne Riley MA on 12/02/24 15:43 UA Blood 25 [place]/uL Last Edit by Yvonne Riley MA on 12/02/24 15:43 UA Specific [place] 1.015 Last Edit by Yvonne Riley MA on 12/02/24 15:43 UA Ketone Negative Last Edit by Yvonne Riley MA on 12/02/24 15:43 UA Bilirubin 0 mg/dL Last Edit by Yvonne Riley MA on 12/02/24 15:43 UA Glucose 60 mg/dL Last Edit by Yvonne Riley MA on 12/02/24 15:43 Results Reviewed Results Reviewed: Laboratory Last Values Urine pH (Auto) 6.0 12/02/24 14:22 Specific [place] (Auto) 1.015 12/02/24 14:22 Urine Protein (Auto) 0 mg/dL 12/02/24 14:22 Glucose (UA)(Auto) 60 mg/dL 12/02/24 14:22 Urine Ketones (Auto) Negative 12/02/24 14:22 Urine Blood (Auto) 25 [place]/uL 12/02/24 14:22 Urine Nitrite (Auto) Negative 12/02/24 14:22 Urine Bilirubin (Auto) 0 mg/dL 12/02/24 14:22 Urine Urobilinogen (Auto) 3.5 mg/dL 12/02/24 14:22 Leukocyte Esterase (Auto) 0 Maryann/uL 12/02/24 14:22 Assessment & Plan Assessment & Plan (1) BPH w urinary obs/LUTS: Code(s): N40.1 - Benign prostatic hyperplasia with lower urinary tract symptoms; N13.8 - Other obstructive and reflux uropathy Category: Medical (2) Hypogonadism in male: Code(s): E29.1 - Testicular hypofunction Category: Medical Plan Six-month follow-up lab work Orders: Orders Prostate Specific Antigen 6 Months E29.1 - Testicular hypofunction Testosterone, Total 6 Months E29.1 - Testicular hypofunction Complete Blood Count no Diff 6 Months E29.1 - Testicular hypofunction AMB Urinalysis Automated Today Z13.9 - Encounter for screening, unspecified Patient Instructions: This note is constructed using voice recognition software. While every effort has been made to ensure accuracy medical instructor errors may have been included. Imaging studies, laboratory and physical exam results were discussed and reviewed in detail. No major barriers to patient understanding were identified. An opportunity to ask questions regarding the treatment plan was provided. All questions were answered. The patient expressed understanding and agreement with the above treatment plan. The patient is aware they should contact our office by phone for worsening of their current condition or the appearance of new urologic symptoms. Compliance is encouraged with any medications and followup testing that is ordered. It is a privilege to participate in the urologic care of your patient. If you have any questions or concerns regarding treatment for the above conditions, or other urologic issues, please do not hesitate to contact me. The office telephone contact is [phone]. Sincerely, Dr Suleiman Mitchell MD, [facility] - Urology Compassionate Specialist Care for the Genitourinary System Coding Level of Care Code Est Pt Level 3 (97880) Diagnoses BPH w urinary obs/LUTS N40.1; N13.8 Hypogonadism in male E29.1
--- OUTSIDE RECORDS SUMMARY | 2024-12-02 11:29 | XMS_ITS | Clinical Summary ---
Author Organization [facility] Address [address] [place] [address] Phone Care Team Providers [employer] Name Role Phone Neftaly BhagatP Primary Care Provider [phone] Allergies Active Allergy Reactions Criticality Noted Date Comments Hydrochlorothiazide Other 09/08/2024 HYPOKALEMIA Sildenafil Headache 09/08/2024 Simvastatin Unknown 09/06/2024 Medications omeprazole (PRILOSEC) 20 mg tablet,delayed release (DR/EC) Take 1 capsule by mouth 1 (one) time each day. 4 Active LACTOBACILLUS ACIDOPHILUS ORAL Take 1 capsule by mouth 2 (two) times a day. 4 Active albuterol HFA (PROAIR HFA ; PROVENTIL HFA ; VENTOLIN HFA) 90 mcg/actuation inhaler Inhale 2 puffs by mouth every 4 (four) hours if needed. 4 Active amLODIPine (NORVASC) 5 mg tablet Take 1 tablet (5 mg total) by mouth 1 (one) time each day. 4 Active atorvastatin (LIPITOR) 80 mg tablet Take 1 tablet (80 mg total) by mouth at bedtime. 4 Active lisinopriL (PRINIVIL,ZESTRI L) 30 mg tablet Take 1 tablet (30 mg total) by mouth 1 (one) time each day. 4 Active metoprolol tartrate (LOPRESSOR) 50 mg tablet Take 1 tablet (50 mg total) by mouth 2 (two) times a day. 4 Active testosterone cypionate (DEPO-TESTOTERON E) 200 mg/mL injection Inject 1 mL (200 mg total) into the shoulder, thigh, or buttocks 1 (one) time per week. On thursday 5 Active Active Problems Problem Noted Date Diagnosed Date Hx of parotidectomy 09/08/2024 Encounters Date Type Department Care Team Description 09/08/2024 7:37 AM EDT Anesthesia Event [facility] Main OR [address] [place] [phone] Rayo White MD Malone, Brody, SRNA 09/08/2024 7:30 AM EDT - 09/08/2024 11:00 AM EDT Surgery [facility] OR [address] [place] [phone] Anibal Perez MD RIGHT PAROTIDECTOMY [[id number] (CPT )] 09/08/2024 6:15 AM EDT - 09/09/2024 1:06 PM EDT Hospital Encounter [facility] Intermediate Care Unit [address] [place] [address] Anibal Perez MD Flores, Carlos M, MD Nasser, Nada S, MD Hx of parotidectomy (Primary Dx); Neoplasm of uncertain behavior of parotid gland Discharge Disposition: Home or Self Care from Last 3 Months Surgical History Surgery Date Site/Laterality Comments KNEE ARTHROPLASTY Bilateral HERNIA REPAIR ABD Medical History Medical History Date Comments Abnormal findings on cardiac catheterization BPH (benign prostatic hyperplasia) Hyperlipidemia Hypertension Sleep apnea COPD (chronic obstructive pulmonary disease) (CM S/HCC V24, CMS/HCC V28) Diabetes mellitus (CMS/HCC V24, CMS/[facility] V28) GERD (gastroesophageal reflux disease) Depression PTSD (post-traumatic stress disorder) Arthritis Joint pain Social History Tobacco Use Types Packs/Day Years Used Date Smoking Tobacco: Former Cigarettes Tobacco Cessation:Counseling Given: Not Answered Alcohol Use Standard Drinks/Week Comments Not Currently 0 (1 standard drink = 0.6 oz pur e alcohol) Interpersonal Safety Answer Date Record ed Physical Abuse 09/08/2024 Verbal Abuse 09/08/2024 Sex and Gender Information Value Date Recorded Sex Assigned at Male 09/07/2024 10:23 AM EDT Legal Sex Male 7:45 AM EDT Gender Identity Male 09/07/2024 10:23 AM EDT Sexual Orientation Straight 09/07/2024 10 :23 AM EDT Obstetrics History Last Filed Vital Signs Vital Sign Reading Time Taken Comments Blood Pressure 132/98 09/09/2024 12:00 PM EDT Pulse 82 09/09/2024 11:31 AM EDT Temperature 36.3 C (97.3 F) 09/09/2024 11:31 AM EDT Respiratory Rate 17 09/09/2024 11:31 AM EDT Oxygen Saturation 97% 09/09/2024 11:31 AM EDT Inhaled Oxygen Concentration - - Weight 147 kg (323 lb) 09/08/2024 7:19 AM EDT Height 180.3 cm (5' 10.98 ) 09/08/2024 7:19 AM E DT Body Mass Index 45.07 09/08/2024 7:19 AM EDT Plan of Treatment Health Maintenance Due Date Last Done Comments Diabetes: Annual Foot Exam 1965 Diabetes: Annual Retina Eye Exam 1965 COVID-19 Vaccine ( season) 2024 04/08/2023, 10/04/2021, 04/20/2021, Additional history exists Abdominal Aortic Aneurysm (AAA) Screen 08/16/2024 Cholesterol Screening (Lipid Panel) 08/16/2024 Colorectal Cancer Screening: Colonoscopy 08/16/2024 Depression Screening 08/16/2024 Diabetes: Annual Urine Albumin-Creatinine Ratio (uACR) 08/16/2024 Diabetes: Blood Sugar Control Test (HGBA1C) 08/16/2024 Hepatitis C Screening 08/16/2024 Medicare Annual Wellness Visit 08/16/2024 Social Influencers of Health Screening 08/16/2024 Diabetes: Annual GFR (Glomerular Filtration Rate) 09/09/2025 09/09/2024 Falls Risk Assessment 09/09/2025 09/09/2024 Hypertension/CHF/CAD Annual BMP Blood Test 09/09/2025 09/09/2024 DTaP,Tdap,and Td Vaccines (3 - Td or Tdap) 12/29/2027 12/28/2017, 03/31/2008 Hepatitis B Vaccines Completed 11/21/2008, 06/23/2008, 05/23/2008 Zoster Vaccines Completed 09/29/2017, 07/10, 06/06/2014 Pneumococcal Vaccine: 50+ Years Completed 04/04/2022, 06/17/2019, 07/21/2011 RSV Immunization Adult Patients Completed 04/21/2023 Influenza Vaccine Completed 02/22/2024, , 04/04/2022, Additional history exists HIB Vaccines Aged Out No longer eligi ble based on patient's age to complete this topic HPV Vaccines Aged Out No longer eligi ble based on patient's age to complete this topic Hepatitis A Vaccines Aged Out No long er eligible based on patient's age to complete this topic IPV Vaccines Aged Out No longer eligi ble based on patient's age to complete this topic MMR Vaccines Aged Out No longer eligi ble based on patient's age to complete this topic Meningococcal ACWY Vaccine Aged Out N o longer eligible based on patient's age to complete this topic Meningococcal B Vaccine Aged Out No l onger eligible based on patient's age to complete this topic RSV Immunization Patients Under 20 months Aged Out No longer eligible based on patient's age to complete this topic Varicella Vaccines Aged Out No longer eligible based on patient's age to complete this topic Procedures Procedure Name Priority Date/Time Associated Diagnosis Comments POCT GLUCOSE BLOOD Routine 09/09/2024 11 :32 AM EDT POCT GLUCOSE BLOOD Routine 09/09/2024 7: 27 AM EDT CBC WITH AUTO DIFFERENTIAL Routine 09/09/2024 6:43 AM EDT CBC AND DIFFERENTIAL Routine 09/09/2024 6:43 AM EDT BASIC METABOLIC PANEL Routine 09/09/2024 6:43 AM EDT POCT GLUCOSE BLOOD Routine 09/08/2024 7: 53 PM EDT POCT GLUCOSE BLOOD Routine 09/08/2024 2: 02 PM EDT CPAP NIV Routine 09/08/2024 12:07 PM EDT TISSUE EXAM Routine 09/08/2024 9:48 AM EDT Neoplasm of uncertain behavior of parotid gland TH AN ENDOTRACHEAL(NO CHARGE) Routine 09/08/2024 8:21 AM EDT SC EXC PAROTID TUMOR/GLAND LAT LOBE W/ DISSECTION&PRESERVAT ION FACIAL NERVE 09/08/2024 7:35 AM EDT Benign tumor of parotid gland Case Notes 23-HR BED,NIMS Special Needs 3 HRS REQ'D PROCEDURAL ECG Routine 09/08/2024 6:42 AM EDT POCT GLUCOSE BLOOD Routine 09/08/2024 6: 38 AM EDT from Last 3 Months Results * (ABNORMAL) POCT Glucose, blood (09/09/2024 11:32 AM EDT) Only the most recent of5 resultswithin the time period is included. [facility] Glucose POCT 113(H) 70 - 100 mg/dL 09/09/2024 11:32 AM EDT [facility] Blood Capillary blood specimen / Unknown 09/09/2024 11:32 AM EDT 09/09/2024 11:33 AM EDT us Oliverio Moreau MD LAB POINT OF CARE TE ST DOCKED DEVICE UNSOLICITED RESULTS Final Result [facility] [address] [place] [address], [place] [phone] * (ABNORMAL) CBC auto differential (09/09/2024 6:43 AM EDT) Pathologist [facility] WBC 9.6 4.8 - 10.8 K/[facility] LAB HEMETOLOGY METHOD 09/09/2024 7:21 AM EDT [facility] RBC 6.40(H) 4.50 - 5.50 M/[facility] LAB HEMETOLOGY METHOD 09/09/2024 7:21 AM [facility] Hemoglobin 15.6 13.5 - 17.5 g/dL LAB HEMETOLOGY METHOD 09/09/2024 7:21 AM [facility] Hematocrit 51.3 42.0 - 54.0 % LAB HEMETOLOGY METHOD 09/09/2024 7:21 AM [facility] MCV 79.8 79.0 - 98.0 FL LAB HEMETOLOGY METHOD 09/09/2024 7:21 AM [facility] MCH 24.3(L) 27.0 - 32.0 pcg LAB HEMETOLOGY METHOD 09/09/2024 7:21 AM [facility] MCHC 30.4(L) 32.0 - 37.0 g/dL LAB HEMETOLOGY METHOD 09/09/2024 7:21 AM [facility] RDW 20.0(H) 11.0 - 15.0 % LAB HEMETOLOGY METHOD 09/09/2024 7:21 AM [facility] Platelets 246 130 - 400 K/mcL LAB HEMETOLOGY METHOD 09/09/2024 7:21 AM [facility] MPV 10.4 7.0 - 11.0 FL LAB HEMETOLOGY METHOD 09/09/2024 7:21 AM [facility] NRBC 0.0 <1.0 % LAB HEMETOLOGY METHOD 09/09/2024 7:21 AM [facility] NRBC Absolute 0.00 <0.10 K/mcL LAB HEMETOLOGY METHOD 09/09/2024 7:21 AM [facility] Neutrophils Relative 71.8 % LAB HEMETOLOGY METHOD 09/09/2024 7:21 AM [facility] Lymphocytes Relative 19.3 % LAB HEMETOLOGY METHOD [facility] Monocytes Relative 8.2 % LAB HEMETOLOGY METHOD 09/09/2024 7:21 AM [facility] Eosinophils Relative 0.3 % LAB HEMETOLOGY METHOD 09/09/2024 7:21 AM [facility] Basophils Relative 0.2 % LAB HEMETOLOGY METHOD 09/09/2024 7:21 AM [facility] Immature Granulocytes Relative 0.2 % LAB HEMETOLOGY METHOD 09/09/2024 7:21 AM [facility] Neutrophils Absolute 6.86 1.50 - 7.00 K/mcL LAB HEMETOLOGY METHOD 09/09/2024 7:21 AM [facility] Lymphocytes Absolute 1.84 1.00 - 5.00 K/mcL LAB HEMETOLOGY METHOD 09/09/2024 7:21 AM [facility] Monocytes Absolute 0.78 0.20 - 1.00 K/mcL LAB HEMETOLOGY METHOD 09/09/2024 7:21 AM [facility] Eosinophils Absolute 0.03 0.00 - 0.50 K/mcL LAB HEMETOLOGY METHOD 09/09/2024 7:21 AM [facility] Basophils Absolute 0.02 0.00 - 0.20 K/mcL LAB HEMETOLOGY METHOD 09/09/2024 7:21 AM [facility] Immature Granulocytes Absolute 0.02 0.00 - 0.03 K/mcL LAB HEMETOLOGY METHOD 09/09/2024 7:21 AM [facility] Blood Venous blood specimen / Unknown Venipuncture / Unknown 09/09/2024 6:43 AM EDT 09/09/2024 6:51 AM EDT us Karlos CRISTOBAL LAB BLOOD ORDERABLES Final Resu lt [facility] [address] [place] [address], * (ABNORMAL) Basic metabolic panel (09/09/2024 6:43 AM EDT) Sodium 142 133 - 145 mmol/L LAB CHEMISTRY METHOD 09/09/2024 7:46 AM [facility] Potassium 4.3 3.5 - 5.5 mmol/L LAB CHEMISTRY METHOD 09/09/2024 7:46 AM [facility] Chloride 109 96 - 110 mmol/L LAB CHEMISTRY METHOD 09/09/2024 7:46 AM [facility] CO2 28 21 - 32 mmol/L LAB CHEMISTRY METHOD 09/09/2024 7:46 AM [facility] Anion Gap 5 3 - 11 LAB CHEMISTRY METHOD 09/09/2024 7:46 AM [facility] Glucose 114(H) 70 - 100 mg/dL LAB CHEMISTRY METHOD 09/09/2024 7:46 AM [facility] BUN 16 5 - 25 mg/dL LAB CHEMISTRY METHOD 09/09/2024 7:46 AM [facility] Creatinine 1.11 0.70 - 1.30 mg/dL LAB CHEMISTRY METHOD 09/09/2024 7:46 AM [facility] eGFR 71 >=60 mL/min/1. 73m2 LAB CHEMISTRY METHOD 09/09/2024 7:46 AM [facility] Comment:Calculation based on the Chronic Kidney Disease Epidemiology Collaboration (CKD-EPI) equation refit without adjustment for race. BUN/Creatinine Ratio 14.4 LAB CHEMISTRY METHOD 09/09/2024 7:46 AM [facility] Calcium 9.1 8.5 - 10.5 mg/dL LAB CHEMISTRY METHOD 09/09/2024 7:46 AM [facility] Blood Venous blood specimen / Unknown Venipuncture / Unknown 09/09/2024 6:43 AM EDT 09/09/2024 6:51 AM EDT us Karlos CRISTOBAL LAB BLOOD ORDERABLES Final Resu lt [facility] [address] [place] [address], [place] [phone] * Tissue exam (09/08/2024 9:48 AM EDT) Final Diagnosis A. Right parotid gland: Basal cell adenoma Associated simple cyst Margins uninvolved B. Lymph node, anterior surface of right parotid gland: Benign lymph node Benign salivary gland 1:05 PM EDT [facility] Gross Description A. Salivary Gland, Right parotidectomy: Labeled other, right par . Received in formalin is a 3 g, 1.9 x 1.5 x 1.3 cm unoriented pink-yellow cauterized rubbery tissue fragment. The specimen is entirely inked blue and sectioned along the long axis. The cut surfaces are entirely comprised of a 1.8 x 1.5 x 1.2 cm partially solid, partially cystic mass. The solid components are sinha-pink, glistening homogenous. The cystic component contains a red-brown watery fluid. The cyst lining is smooth. The specimen is entirely submitted in three cassettes, two pieces each. B. Salivary Gland, Right lesion on anterior surface of parotid: Labeled other, right les . Received in formalin is a 1 g, 1.3 x 1 x 0.5 cm sinha-yellow rubbery tissue fragment which is inked green. The cut surfaces are sinha-pink to red and glistening. The specimen is entirely submitted into cassettes, three pieces each. ANH 1:05 PM EDT [facility] Special Stains To confirm the diagnosis of basal cell adenoma, beta catenin stain was performed with appropriate controls. Beta-catenin: Nuclear expression in neoplastic cells (in addition to cytoplasmic staining) This supports the diagnosis of basal cell adenoma. 1:05 PM EDT [facility] Disclaimer NOTE: The immunohistochemical tests and in situ hybridization tests were developed and their performance characteristics were determined by [facility]. They have not been cleared or approved by the U.S. Food and Drug Administration. The FDA has determined that such clearance or approval is not necessary. These tests are used for clinical purposes. They should not be regarded as investigational or for research. This laboratory is certified under the Clinical Laboratory Improvement Amendments of 1988 (CLIA) as qualified to perform high complexity clinical laboratory testing. (controls appropriate) Unless otherwise specified, all tissue is 10% NB formalin fixed and paraffin embedded. 1:05 PM EDT [facility] Tissue Salivary gland structure / Unknown 09/08/2024 9:48 AM EDT 09/08/2024 11:22 AM EDT Tissue specimen (specimen) Salivary gland structure / Unknown 09/08/2024 9:51 AM EDT 09/08/2024 11:22 AM EDT us Anibal Perez MD LAB PATHOLOGY ORDERABLES Final Result [facility] [address] [place] [address], * TH AN ENDOTRACHEAL(NO CHARGE) (09/08/2024 8:21 AM EDT) Narrative Nicko Teresa SRNA - 09/08/2024 8:21 AM EDT DEREK Hyde 09/08/2024 8:36 AM General Information and Staff Patient location during procedure: OR Resident/FIELD INVESTIGATOR: DEREK Hyde Performed: resident/FIELD INVESTIGATOR/CAA Performed by: DEREK Hyde Authorized by: Rayo White MD Intubation Additional Comments RSI Airway not difficult Urgency: elective Final Airway Details Successful airway: ETT Cuffed: yes Successful intubation technique: video laryngoscopy Facilitating devices/methods: intubating stylet Endotracheal tube insertion site: oral Blade: Priyanka Blade size: #4 ETT size (mm): 7.5 Cormack-Lehane Classification: grade I - full view of glottis Placement verified by: chest auscultation and capnometry Measured from: teeth ETT to teeth (cm): 23 Number of attempts at approach: 1Final airway type: endotracheal airway Indications and Patient Condition Indications for airway management: anesthesia Spontaneous Ventilation: absent Sedation level: Yes Preoxygenated: yes Soft Tissue Damage: No Dentition Unchanged: Yes Patient position: sniffing MILS maintained throughout Mask difficulty assessment: 0 - not attempted (RSI) Rayo White MD ANESTHESIA ORDERABLES Edited Result - Final * ECG 12 lead - Procedural (No Charge) (09/08/2024 6:42 AM EDT) Ventricular Rate ECG 72 BPM GEMUSE Atrial Rate 72 BPM GEMUSE P-R Interval 212 ms GEMUSE QRS Duration 94 ms GEMUSE Q-T Interval 384 ms GEMUSE QTc 420 ms GEMUSE P Wave [place] 58 degrees GEMUSE R [place] -16 degrees GEMUSE T [place] 21 degrees GEMUSE ECG Interpretation Sinus rhythm with 1st degree A-V block Otherwise normal ECG No previous ECGs available Confirmed by Abdi LEÓN YUFENG ([id number]) on 09/08/2024 7:32:00 PM GEMUSE 09/08/2024 6:42 AM EDT 09/08/2024 7:32 PM EDT Rayo White MD ECG ORDERABLES Final Result GEMUSE from Last 3 Months Insurance MEDICARE [facility] Advance Directives * Full Code - Confirmed (Latest Code Status on File) Date Activated Date Inactivated Comments 09/08/2024 12:10 PM 09/09/2024 3:16 PM This code sta tus was ascertained in the following way: Code status discussion: discussion with patient To update the patient's code status, place a code status order. Do not modify or discontinue any currently active code status orders. * Full Code - Default Date Activated Date Inactivated Comments 09/08/2024 11:41 AM 09/08/2024 12:10 PM This is orde r is used when code status has not been discussed with the patient, or code status is otherwise unknown/unconfirmed To update the patient's code status, place a code status order. Do not modify or discontinue any currently active code status orders. Care Teams [employer] Relationship Specialty Start Date End Date Neftaly Bhagat FNP [address] [place] [address] [place] [address] PCP - General Family Medicine 09/07/24
== END 2024-12-02 11:28 | disposition home or self-care (01) ==
LOC: HO.HUSH 10:37
PROVIDERS: PCP Nurse Practitioner Family; Visit Provider Urology
DX: N40.1 Benign prostatic hyperplasia with lower urinary tract symptoms (principal); N13.8 Other obstructive and reflux uropathy; E29.1 Testicular hypofunction; Z13.9 Encounter for screening, unspecified
CPT/HCPCS: 99213

== ENCOUNTER → 2024-12-02 10:36 | Outpatient (BNVA) | payer OTHER, SELFPAY | PROVIDERS: PCP Nurse Practitioner Family; Visit Provider Urology | DX: E29.1 Testicular hypofunction (principal); N40.1 Benign prostatic hyperplasia with lower urinary tract symptoms; N13.8 Other obstructive and reflux uropathy | CPT/HCPCS: 81003; 99212 ==

== ENCOUNTER 2024-12-06 09:50 | Outpatient (AMB) | payer OTHER, SELFPAY ==
--- NOTE | 2024-12-06 10:07 | MHC.OFFVIS ---
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 In the past, has been seen regarding chest pain and palpitations. He has undergone cardiac catheterization in the past but no significant CAD. Holter had shown premature atrial contractions. He is also morbidly obese. Recently, he was not admitted to [facility] [place] with DVT/PE. Apparently, he had parotid tumor removed and around the same time he was also on testosterone replacement. He believes that was the reason for the thromboembolic episode. Any case after that he was put on anticoagulation. Overall, he states he feels okay. No new cardiac concerns. No chest pains or other symptoms. [facility] Medical History Pulmonary embolism CORKY on CPAP Diabetes Essential hypertension Morbid obesity PVCs (premature ventricular contractions) Atrial arrhythmia Surgical History Hx of total knee replacement History of cardiac catheterization (~07/15/17) History of umbilical hernia repair (~2009) History of colonoscopy (~2009) Family History Father Prostate CA Mother No problems noted. Social History Patient Tobacco Use Status: Former Tobacco user Review of Systems Const Denies chills, Denies fatigue, Denies fever(s), Denies frequent falls, Denies weakness, Denies weight gain and Denies weight loss ENT Denies dizziness Card Denies chest pain, Denies leg edema, Denies lightheadedness, Denies palpitations, Denies dyspnea and Denies dyspnea on exertion Resp Denies cough, Denies dyspnea and Denies dyspnea on exertion GI Denies hematochezia Musc Denies abnormal gait, Denies muscle weakness, Denies numbness, Denies radiating pain into limb and Denies tingling Neuro Denies abnormal gait, Denies dizziness, Denies frequent falls, Denies numbness, Denies tingling and Denies weakness Endo Denies fatigue and Denies palpitations Physical Exam Vital Signs: Last Vital Signs Pulse 75 12/06/24 10:09 BP 110/70 12/06/24 10:09 BMI result Body Mass Index 44.5 Const General: comfortable and no acute distress Orientation/consciousness: patient oriented x3 HEENT Other: Unremarkable Head: Yes normal to inspection Neck Neck: Yes normal visual inspection Chest Chest palpation & inspection: normal inspection of the chest Resp Auscultation: clear to auscultation bilaterally Cardio Palpation: normal PMI Heart sounds: S1 normal heart sound present, S2 normal heart sound present, no gallops, no murmurs and no rubs GI Palpation (GI): Soft to palpation Back/Spine/Pelvis Other: unremarkable Skin General skin exam: no rashes or lesions noted Neuro General: patient oriented x3 Extrem General: Yes normal to inspection Psych Mental Status: mental status grossly normal Office Procedures EKG Details: EKG with underlying sinus rhythm at 75/Min; minimal criteria for LVH versus normal variant; [place]. [id number], Complete Assessment & Plan Assessment & Plan (1) Atrial arrhythmia: Code(s): I49.8 - Other specified cardiac arrhythmias Category: Medical Plan: In the past, Holter had shown frequent PACs. Last Holter looks unremarkable. Due to coexisting obesity as well as obstructive sleep apnea, increased risk of atrial fibrillation in the future. (2) Essential hypertension: Code(s): I10 - Essential (primary) hypertension Category: Medical Plan: Listed to be on lisinopril, amlodipine. No changes. (3) Pulmonary embolism: Code(s): I26.99 - Other pulmonary embolism without acute cor pulmonale Category: Medical Plan: Per [facility] notes, saddle pulmonary embolism on CTA angio as well as nonocclusive thrombus in the right lower extremity. Thought to be related to testosterone replacement. On Eliquis. Per [facility] echocardiogram, normal LVEF; with regard to right ventricle, normal size and systolic function. Mild hypokinesis of the RV free wall. RVSP 35 mm Hg. We will recheck echocardiogram in 6 months time to look for any pulmonary hypertension. (4) Morbid obesity: Code(s): E66.01 - Morbid (severe) obesity due to excess calories Category: Medical Plan: He has been like this for a long time and not clear if it is going to change. (5) CORKY on CPAP: Code(s): G47.33 - Obstructive sleep apnea (adult) (pediatric); Z99.89 - Dependence on other enabling machines and devices Category: Medical Plan: CPAP. Orders: Orders CA echo transthoracic complete 6 Months I26.99 - Other pulmonary embolism without acute cor pulmonale Coding Level of Care Code Est Pt Level 4 (33059) Complex EM visit Add On G2211 Diagnoses Atrial arrhythmia I49.8 Essential hypertension I10 Pulmonary embolism I26.99 Morbid obesity E66.01 CORKY on CPAP G47.33; Z99.89 CPT Codes EKG - CPT: 99012-[id number], Complete ([id number])
[2024-12-06 10:09] VITALS: BP 110/70; PULSE 75; BMI 44.5
--- OUTSIDE RECORDS SUMMARY | 2024-12-06 10:43 | XMS_ITS | Data Portability ---
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 The AVILA drain was removed today without difficulty. The patient was instructed to call the office for increased swelling, fever, tenderness, or drainage. Wound care was discussed. I recommended avoidance of strenuous activity, heavy lifting or straining for 2 weeks. Pathology is pending and will be followed. He will follow up as scheduled on for suture removal. All questions were answered. [email or web address] Not available 09/12/2024 16:04:13 09/15/2024 09/15/2024 The patient continues to do well following parotidectomy. Sutures were removed without difficulty. 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 Recommended to apply an OTC triple antibiotic ointment over the incision BID x 1 week. Follow up 1 month post operatively for reevaluation. Patient presents for audiometric testing. On exam, bilateral TMs are intact with well aerated middle ear spaces. 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 We will continue to observe and plan for yearly audiometric testing. Not available 09/15/2024 15:46:18 Plan of Treatment Reminders Order Date Submit Date Provider Last Modified By Organization Details Last Modified Time Details Appointments None recorded. Lab None recorded. Referral None recorded. Procedures None recorded. Surgeries parotidect velasquez (SURG) 2024 025 [email or web address] Not available 12:55:43 Imaging None recorded. Medication Orders None recorded. Patient TargetsNo targets recorded. Patient InstructionsNo instructions recorded. Reason for Referral None Reported. Results Created Date Observation Date Name Description Value Unit Range Abnormal Flag Note LastModifiedBy Organization Detail LastModifiedTime 09/09/1909/08/2024 TISSU E EXAM .note See Note Origi nal Order ing Provi colten: MILE T W EPPST EINER [facility] - [address], [place], [place] [address] Not Available [address], [address], 09/15/2024 13:08:22 09/09/19 25 09/08/2024 TISSU E EXAM final diagnosis A. Right paroti d gland: Basal cell adeno ma Assoc iated simpl e cyst Luz Maria ns uninv olved B. Lymph node, anter ior surfa ce of right parot id gland : Benig n lymph node Benig n saliv shlomo gland Elect elroy dhaliwal d by Kate Lennon MD on 2024 at 1:05 PM Not Available [address], [address], 09/15/2024 13:08:22 09/09/19 25 09/08/2024 TISSU E EXAM gross description A. Saliva ry Gland, Right paroti dectom y: Label ed othe r, right par . Recei bernie in forma heidi is a 3 g, 1.9 x 1.5 x 1.3 cm unori ented pink- yello w caute rized rubbe ry tissu e fragm ent. The speci men is entir jackelyn inked blue and secti oned along the long axis. The cut surfa ashley are entir jackelyn compr ised of a 1.8 x 1.5 x 1.2 cm parti ally solid , parti ally cysti c mass. The solid compo nents are sinha-p ink, glist ening homog enous . The cysti c compo nent conta ins a red-b rown water y fluid . The cyst linin g is jacinta h. The speci men is entir jackelyn submi tted in three casse ttes, two piece s each. B. Saliv shlomo Gland , Right lesio n on anter ior surfa ce of parot id: Label ed othe r, right les . Recei bernie in forma heidi is a 1 g, 1.3 x 1 x 0.5 cm sinha-y ellow rubbe ry tissu e fragm ent which is inked green . The cut surfa ashley are sinha-p ink to red and glist ening . The speci men is entir jackelyn submi tted into casse ttes, three piece s each. ANH Not Available [address], [address], 09/15/2024 13:08:22 09/09/19 25 09/08/2024 TISSU E EXAM special stains To confi rm the diagn osis of basal cell adeno ma, beta caten in stain was perfo rmed with appro priat e contr ols. Beta- caten in: Nucle ar expre ssion in neopl astic cells (in addit ion to cytop lasmi c stain ing) This suppo rts the diagn osis of basal cell adeno ma. Not Available [address], [address], 09/15/2024 13:08:22 09/09/19 25 09/08/2024 TISSU E EXAM disclaimer NOTE: The immun ohist ochem ical tests and in situ hybri dizat ion tests were devel oped and their perfo rmanc e katie cteri stics were deter mined by [facility] . They have not been clear ed or appro bernie by the U.S. Food and Drug Admin istra tion. The FDA has deter mined that such clear ance or appro shade is not neces krystle. These tests are used for clini jennifer purpo ses. They shoul d not be regar ded as inves tigat ional or for resea rch. This labor atory is certi fied under the Clini jennifer Labor atory Impro vemen t Amend ments of 1987 (CLIA ) as quali fied to perfo rm high compl exity clini jennifer labor atory testi ng. (cont rols appro priat e) Unles s other loo speci fied, all tissu e is 10% NB forma heidi fixed and paraf fin embed ded. Not Available [address], [address], 09/15/2024 13:08:22 09/09/19 25 09/08/2024 H&P No observ ation record ed. [address], [address], 09/08/2024 11:10:44 09/09/19 25 09/08/2024 op note No observ ation record ed. [address], [address], 09/08/2024 11:10:45 09/16/19 25 audio gram No observ ation record ed. BARCODE Not Available 2024 16:56:13 Result Notes None recorded. Problems Name Problem SNOMED Code Status Onset Date Resolution Date Notes Provider Name and Address Organization Details Recorded Time Thyroid nodule 354744638 Active 2023 HUSSEIN PEREZ MD [address] [place] [address],[place] [address], [place], [phone] , [place] - [facility] 4 14:02:21 Neoplasm of parotid gland 645124498 Active 2023 HUSSEIN PEREZ MD [address] [place] [address],[place] [address], [place], [phone] , [place] - [facility] 14:06:46 Chronic sore throat 593459443 Active 2023 HUSSEIN PEREZ MD [address] [facility], [place], [address] , [facility] - [facility] 4 14:06:53 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; Note: Date Diagnosed : 08/20/2023 11:47 AM (D10.1) Not Available [facility] 4 03:27:09 Gastroeso phageal reflux disease without esophagit is 703951739 Active 2023 Gastro-es ophageal reflux disease without esophagit is; Note: Date Diagnosed : 08/20/2023 11:40 AM (K21.9) Not Available [facility] 03:27:10 Chronic pharyngit is 598000 Active 2023 Chronic pharyngit is; Note: Date Diagnosed : 08/20/2023 11:40 AM (J31.2) Not Available [facility] 03:27:10 Benign neoplasm of parotid gland 56747663 Active 2024 DEQUAN JEAN PA-C [address] [facility], [place], [address] , [place] - [facility] 5 14:59:03 Sensorine ural hearing loss in right ear 30523011410 100 Active 2024 Rosenda feng [place] - [facility] 5 15:09:25 Problem Notes None recorded. Procedures Surgical History Date Name Laterality Status Provider Name and Address Organization Details Recorded Time 09/16/19 25 Comp Audio with Tymps - 81806 & 11534 completed Rosenda Chow [place] - [facility] 09/15/2024 15:09:09 09/09/19 superficial parotidectomy completed HUSSEIN PEREZ MD [address] [facility], [place], [address], [facility] - [facility] 09/08/2024 10:56:24 Imaging Results None recorded. Procedure Notes None recorded. Medical Equipment None Reported. Allergies Allergen ID Allergen Name Allergen Category Reaction Reaction Severity Criticality Documentation Date Start Date Code Code System Note Provider Name and Address Organization Details Recorded Time 718841 simvastat in medicatio n other Not available Not available 01/08/2024 98861 RxNorm React ion: Unkno wn; Not Available [facility] 00:39:48 Medications Name Sig Start Date Stop Date Status Note LastModified by Organization Details LastModified Time amoxicilli n 500 mg capsule TAKE 4 PILLS 1 HOUR PRIOR TO DENTAL APPT. active Not Available Not Available No t Available ondansetro n 4 mg disintegra ting tablet TAKE 1 TABLET (4 MG) BY MOUTH EVERY 8 HOURS NEEDED FOR NAUSEA AND VOMITING FOR UP TO 7 DAYS active Not Available Not Available No t Available DentaGel 1.1 % USE PEA SIZE AT BEDTIME DO NOT EAT OR DRINK FOR HALF AN HOUR AFTER APPLYING active Not Available Not Available No t Available tadalafil 5 mg tablet TAKE 1 TABLET BY MOUTH EVERY DAY active Not Available Not Available No t Available sodium fluoride 1.1 %-potassiu m nitrate 5 % dental paste active Medicatio n ID: [id number] Br and Name: sodium fluoride- pot nitrate S end Method: E-Prescri bed Subs Allowed: subs OK Specia l Instructi on: USE PEA SIZE AT BED TIME DO NOT EAT OR DRINK FOR HALF AN HOUR AFTER APPLYING Medicatio nGenericN susi: sodium fluoride- pot nitrate Not Available Not Available Not Available Eliquis 5 mg tablet TAKE 2 TABLETS BY MOUTH TWO TIMES A DAY FOR 4 DAYS THEN TAKE 1 TABLET BY MOUTH TWO TIMES A DAY. active Not Available Not Available No t Available Vitals Date Recorded Body height Body mass index (BMI) Body weight Provider Name and Address Organization Details Last Updated DateTime 08/04/2024 180.34 cm 45 kg/m2 876384.[address] [place] [facility] 08/04/2024 12:24:06 Date Recorded Body height Body mass index (BMI) Body weight Provider Name and Address Organization Details Last Updated DateTime 09/15/2024 180.34 cm 45 kg/m2 604452.34 g Lissy Cervantes [place] - [facility] 09/15/2024 15:12:46 Date Recorded Body height Body mass index (BMI) Body weight Provider Name and Address Organization Details Last Updated DateTime 11/01/2024 180.34 cm 45 kg/m2 025952.[address] [facility] 11/01/2024 08:17:38 Social History None recorded. Functional Status None recorded. Mental Status None recorded. Family History Nothing Reported. Medical History Condition Response Allergies/Hayfever Y Heart Problems Y Anxiety Y Tonsil Infections N Emphysema Y Migraines N Thyroid Problems N Depression Y COPD Y Developmental Delay N Glaucoma N Nasal or Sinus Problems N Anemia N Immune System Disorder N Anesthesia Complications N Heart Attack (NH) N Other Skin Condition Y Diabetes Y Rhinitis N Bleeding Disorder N Food Allergy N Hearing Loss Y Arthritis Y Hyperlipidemia N Cancer N Stroke N Dementia N Nasal polyps N Asthma N Sleep Disorder Y High Cholesterol Y GERD/Reflux Y Liver Disease N Headaches N Fibromyalgia N Hypertension Y Speech Delay N Kidney Disease Y Past Encounters Encounter ID Performer Location Encounter Start Date Encounter Closed Date Diagnosis/Indication Diagnosis SNOMED-CT Code Diagnosis ICD10 Code Diagnosis Note [id number] HUSSEIN PEREZ MD [facility] [address] [address] 12/30/2023 13:32:37 12/30/2023 14:39:51 Thyroid nodule 115168360 E04.1 Neoplasm o f parotid gland 973235428 D49.0 will evaluate with an USGFNA to clarify pathology. Chronic sore throat 2754 17576 J31.2 [address] n[address] CT reassuring . I personally reviewed his imaging. [id number] HUSSEIN PEREZ MD [facility] [address] [address] 02/16/2024 10:40:05 02/16/2024 11:21:09 Thyroid nodule 973056776 E04.1 Will order USGFNA of right thyroid nodule. Neoplasm o f parotid gland 314271936 D49.0 Non-diagno stic FNA. Will reorder. [id number] HUSSEIN PEREZ MD [facility] on [address] [place] [address] 04/13/2024 12:49:48 04/13/2024 13:23:40 Thyroid nodule 342943179 E04.1 Gave reassuranc e. Recommend repeat thyroid US in 1 year. Neoplasm o f parotid gland 032664910 D49.0 Path consistent with pleomorphi c adenoma. I discussed I recommend parotidect velasquez to prevent the possibilit y of malignant degenerati on. The patient is indicated for and a good candidate for parotidect velasquez. I discussed the risks, benefits, and alternativ es to parotidect velasquez with facial nerve dissection . I specifical ly discussed the risk of temporary or permanent facial nerve paralysis. I discussed the risk of gustatory sweating (Yolie syndrome), as well as the risk of first bite syndrome. I discussed the surgical incision as well as the resulting scar and paresthesi a associated with the incision. I discussed the risk of postoperat marissa bleeding or postoperat marissa sialocele both requiring surgical drainage. I discussed the need for a drain to be in place after surgery. I discussed the risk of an infection. I discussed the possibilit y of a capsular dissection where the facial nerve is not identified . I discussed this approach would be determined interopera tively and only used if deemed safe. The patient understand s the risk and would like some time to consider. We will arrange a f/u in a few months to discuss further. If he defers surgery I would repeat an US parotid to assess for interval change. [id number] HUSSEIN PEREZ MD [facility] [address] [address] 08/04/2024 11:54:09 08/04/2024 12:49:11 Thyroid nodule 401768628 E04.1 Gave reassuranc e, biopsy benign. Recommend repeat thyroid US in 1 year. Neoplasm o f parotid gland 348676203 D49.0 Path consistent with pleomorphi c adenoma. I discussed I recommend parotidect velasquez to prevent the possibilit y of malignant degenerati on. The patient is indicated for and a good candidate for parotidect velasquez. I discussed the risks, benefits, and alternativ es to parotidect velasquez with facial nerve dissection . I specifical ly discussed the risk of temporary or permanent facial nerve paralysis. I discussed the risk of gustatory sweating (Yolie syndrome), as well as the risk of first bite syndrome. I discussed the surgical incision as well as the resulting scar and paresthesi a associated with the incision. I discussed the risk of postoperat marissa bleeding or postoperat marissa sialocele both requiring surgical drainage. I discussed the need for a drain to be in place after surgery. I discussed the risk of an infection. I discussed the possibilit y of a capsular dissection where the facial nerve is not identified . I discussed this approach would be determined intraopera tively and only used if deemed safe. The patient understand s the risk and would like to proceed. We will schedule surgery at a mutually convenient time. [id number] DEQUAN JEAN PA-C [facility] [address] [place] [address] 09/12/2024 15:41:49 09/12/2024 15:53:56 Neoplasm of parotid gland 661708623 D49.0 [id number] DEQUAN JEAN PA-C [facility] [address] [place] [address] 09/15/2024 14:35:46 09/15/2024 15:29:30 Benign neoplasm of parotid gland 65619257 D11.0 Sensorineu ral hearing loss in right ear 2116312267 9100 H90.41 [id number] SURJIT ALLAN [facility] [address] [place] [address] 09/15/2024 15:08:31 09/20/2024 15:44:27 Sensorineural hearing loss in right ear 7377781155 9100 H90.41 Audiologic al evaluation results: Right ear: Normal through 6 kHz sloping to a mild sensorineu ral hearing loss with excellent word recognitio n. Left ear: Normal hearing with excellent word recognitio n. Tympanomet ry: Right Ear:Type A Left Ear:Type A [id number] HUSSEIN PEREZ MD [facility] [address] [address] 11/01/2024 08:06:26 11/01/2024 08:44:18 Surgical follow-up 974642433 Z09 healing well. path benign. Doing well despite his PE. He will continue medical f/u for that. I would be glad to see him as needed. Health Concerns Section Related Observation LastModified by Organization Detai ls LastModified Time None Recorded Concern Status LastModified by Organization Details LastModified Time None Recorded Advance Directives Directive None Recorded Payers Insurance Date Sequence Insurance Name Policy Number Policy Laurent Covered Member ID Laurent Member ID Guarantor Name 08/25/2024 2 [place]: [facility] Diego Castellanos Stefan [id number] Diego Stefan 12/30/2023 2 () Diego Austin Alburtis [id number] Diego Alburtis 11/01/2024 1 [place]: [facility] Diego E Alburtis [id number] Diego Stefan 09/08/2024 3 [employer] (HMO) Diego Stefan [id number] Diego Alburtis 09/08/2024 3 [facility] - [employer] (MEDICARE REPLACEMENT HMO) Diego Stefan [id number] Diego Alburtis 09/08/2024 2 [facility] - [employer] (MEDICARE REPLACEMTENT HMO) Diego Stefan [id number] Diego Alburtis 11/01/2024 [employer] - [place] [facility] Diego Alburtis [id number] Diego Stefan 10/08/2024 2 [place] [facility] Diego Alburtis [id number] Diego Stefan Notes Date Note Type Note Provider Name and Address Organization Details Recorded Time 08/04/2024 text/html He presented wit h a sore throat. He had a benign appearing tonsil abnormality so we obtained a CT. Tonsils appeared normal but an incidental right 1cm parotid mass (FNA showed pleomorphic adenoma) and a heterogenous thyroid nodule (FNA benign) were both seen. His sore throat has improved. HUSSEIN PEREZ MD [address] [place] [address], [address], [facility] - [facility] 08/04/2024 12:50:26 09/12/2024 text/html 69-year-old male presents status post right parotidectomy with Dr. Perez on 09/08/2024. He is doing well postoperatively without concerns. About 10 cc of output from AVILA drain. NELDA FELIZ MD [address] [facility],[address], [address], [place] - [facility] 09/12/2024 17:01:58 09/15/2024 text/html 69-year-old male presents status post right parotidectomy with Dr. Perez on 09/08/2024. He continues to do well postoperatively without concerns. AVILA drain removed on Thursday. Patient presents for updated audiometric testing. Denies otalgia and otorrhea. Had a hearing test at the [place] last year. SARINA CORDOBA MD [address] [facility],[address], [address], [facility] - [facility] 09/16/2024 15:53:08 11/01/2024 text/html Hx of right parotidectomy 09/08/24. Path showed a basal cell adenoma. 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 He is now on blood thinners. HUSSEIN PEREZ MD [address] [facility],[place] [address], [place], [address], [place] - [facility] 11/01/2024 08:43:39
--- OUTSIDE RECORDS SUMMARY | 2024-12-06 10:43 | XMS_ITS | Clinical Summary ---
Author Organization [facility] Address [address] [place] [address] Phone Care Team Providers Care Shipping And Receiving Name Role Phone Neftaly BhagatP Primary Care Provider [phone] Allergies Active Allergy Reactions Criticality Noted Date [...] Description 09/08/2024 7:37 AM EDT Anesthesia Event [facility] Main OR [address] [place] [phone] Rayo White MD Malone, Brody, SRNA 09/08/2024 7:30 AM EDT - 09/08/2024 11:00 AM EDT Surgery [facility] OR [address] [place] [phone] Anibal Perez MD RIGHT PAROTIDECTOMY [50170 (CPT )] 09/08/2024 6:15 AM EDT - 09/09/2024 1:06 PM EDT Hospital Encounter [facility] Intermediate Care Unit [address] [place] [address] Anibal Perez MD Flores, Carlos M, MD [...] V24, CMS/HCC V28) Diabetes mellitus (CMS/HCC V24, CMS/[facility] V28) GERD (gastroesophageal reflux disease) Depression PTSD [...] 08/16/2024 Social Influencers of Health Screening 08/16/2024 Influenza Vaccine (#1) 2025 , 04/08/2023, 04/04/2022, Additional history exists Diabetes: Annual GFR (Glomerular Filtration Rate) 09/09/2025 09/09/2024 Falls Risk Assessment 09/09/2025 09/09/2024 Hypertension/CHF/CAD Annual BMP Blood Test 09/09/2025 09/09/2024 DTaP,Tdap,and Td Vaccines (3 - Td or Tdap) 12/29/2027 12/28/2017, 03/31/2008 Hepatitis B Vaccines Completed 11/21/2008, 06/23/2008, 05/23/2008 Zoster Vaccines Completed 09/29/2017, 07/10, 06/06/2014 Pneumococcal Vaccine: 50+ Years Completed 04/04/2022, 06/17/2019, 07/21/2011 RSV Immunization Adult Patients Completed 04/21/2023 HIB Vaccines Aged Out No longer eligi [...] ENDOTRACHEAL(NO CHARGE) Routine 09/08/2024 8:21 AM EDT MN EXC PAROTID TUMOR/GLAND LAT LOBE W/ DISSECTION&PRESERVAT [...] of5 resultswithin the time period is included. [facility] Glucose POCT 113(H) 70 - 100 mg/dL 09/09/2024 11:32 AM EDT [facility] Blood Capillary blood specimen / Unknown 09/09/2024 11:32 AM EDT 09/09/2024 11:33 AM EDT us Oliverio Moreau MD LAB POINT OF CARE TE ST DOCKED DEVICE UNSOLICITED RESULTS Final Result [facility] [address] [place] [address], [place] [phone] * (ABNORMAL) CBC auto differential (09/09/2024 6:43 AM EDT) [facility] WBC 9.6 4.8 - 10.8 K/[facility] LAB HEMETOLOGY METHOD 09/09/2024 7:21 AM EDT [facility] RBC 6.40(H) 4.50 - 5.50 M/mcL LAB HEMETOLOGY METHOD 09/09/2024 7:21 AM [facility] Hemoglobin 15.6 13.5 - 17.5 g/dL LAB HEMETOLOGY METHOD 09/09/2024 7:21 AM [facility] Hematocrit 51.3 42.0 - 54.0 % LAB HEMETOLOGY METHOD 09/09/2024 7:21 AM [facility] MCV 79.8 79.0 - 98.0 FL LAB HEMETOLOGY METHOD 09/09/2024 7:21 AM [facility] MCH 24.3(L) 27.0 - 32.0 pcg LAB HEMETOLOGY METHOD 09/09/2024 7:21 AM [facility] MCHC 30.4(L) 32.0 - 37.0 g/dL LAB HEMETOLOGY METHOD 09/09/2024 7:21 AM [facility] RDW 20.0(H) 11.0 - 15.0 % LAB HEMETOLOGY METHOD 09/09/2024 7:21 AM [facility] Platelets 246 130 - 400 K/mcL LAB HEMETOLOGY METHOD 09/09/2024 7:21 AM [facility] MPV 10.4 7.0 - 11.0 FL LAB HEMETOLOGY METHOD 09/09/2024 7:21 AM [facility] NRBC 0.0 <1.0 % LAB HEMETOLOGY METHOD 09/09/2024 7:21 AM [facility] NRBC Absolute 0.00 <0.10 K/mcL LAB HEMETOLOGY METHOD 09/09/2024 7:21 AM [facility] Neutrophils Relative 71.8 % LAB HEMETOLOGY METHOD 09/09/2024 7:21 AM [facility] Lymphocytes Relative 19.3 % LAB HEMETOLOGY METHOD 09/09/2024 7:21 AM [facility] Monocytes Relative 8.2 % LAB HEMETOLOGY METHOD 09/09/2024 7:21 AM [facility] Eosinophils Relative 0.3 % LAB HEMETOLOGY METHOD 09/09/2024 7:21 AM [facility] Basophils Relative 0.2 % LAB HEMETOLOGY METHOD 09/09/2024 7:21 AM [facility] Immature Granulocytes Relative 0.2 % LAB HEMETOLOGY METHOD 09/09/2024 7:21 AM [facility] Neutrophils Absolute 6.86 1.50 - 7.00 K/mcL LAB HEMETOLOGY METHOD 09/09/2024 7:21 AM [facility] Lymphocytes Absolute 1.84 1.00 - 5.00 K/mcL LAB HEMETOLOGY METHOD 09/09/2024 7:21 AM [facility] Monocytes Absolute 0.78 0.20 - 1.00 K/mcL LAB HEMETOLOGY METHOD 09/09/2024 7:21 AM [facility] Eosinophils Absolute 0.03 0.00 - 0.50 K/mcL LAB HEMETOLOGY METHOD 09/09/2024 7:21 AM [facility] Basophils Absolute 0.02 0.00 - 0.20 K/mcL LAB HEMETOLOGY METHOD 09/09/2024 7:21 AM [facility] Immature Granulocytes Absolute 0.02 0.00 - 0.03 K/mcL LAB HEMETOLOGY METHOD 09/09/2024 7:21 AM [facility] Blood Venous blood specimen / Unknown Venipuncture / Unknown 09/09/2024 6:43 AM EDT 09/09/2024 6:51 AM EDT Karlos CRISTOBAL LAB BLOOD ORDERABLES Final Resu lt [facility] [address] [place] [address], * (ABNORMAL) Basic metabolic panel (09/09/2024 6:43 AM EDT) Sodium 142 133 - 145 mmol/L LAB CHEMISTRY METHOD 09/09/2024 7:46 AM [facility] Potassium 4.3 3.5 - 5.5 mmol/L LAB CHEMISTRY METHOD 09/09/2024 7:46 AM [facility] Chloride 109 96 - 110 mmol/L LAB CHEMISTRY METHOD 09/09/2024 7:46 AM [facility] CO2 28 21 - 32 mmol/L LAB CHEMISTRY METHOD 09/09/2024 7:46 AM [facility] Anion Gap 5 3 - 11 LAB CHEMISTRY METHOD 09/09/2024 7:46 AM [facility] Glucose 114(H) 70 - 100 mg/dL LAB CHEMISTRY METHOD 09/09/2024 7:46 AM [facility] BUN 16 5 - 25 mg/dL LAB CHEMISTRY METHOD 09/09/2024 7:46 AM [facility] Creatinine 1.11 0.70 - 1.30 mg/dL LAB CHEMISTRY METHOD 09/09/2024 7:46 AM [facility] eGFR 71 >=60 mL/min/1. 73m2 LAB CHEMISTRY METHOD 09/09/2024 7:46 AM [facility] Comment:Calculation based on the Chronic Kidney Disease Epidemiology Collaboration (CKD-EPI) equation refit without adjustment for race. BUN/Creatinine Ratio 14.4 LAB CHEMISTRY METHOD 09/09/2024 7:46 AM [facility] Calcium 9.1 8.5 - 10.5 mg/dL LAB CHEMISTRY METHOD 09/09/2024 7:46 AM [facility] Blood Venous blood specimen / Unknown Venipuncture / Unknown 09/09/2024 6:43 AM EDT 09/09/2024 6:51 AM EDT Karlos Grosstrinidad CRISTOBAL LAB BLOOD ORDERABLES Final Resu lt [facility] [address] [place] [address], * Tissue exam (09/08/2024 9:48 AM EDT) Final Diagnosis A. Right parotid gland: Basal cell adenoma Associated simple cyst Margins uninvolved B. Lymph node, anterior surface of right parotid gland: Benign lymph node Benign salivary gland 1:05 PM EDT [facility] Gross Description A. Salivary Gland, [...] three pieces each. ANH 1:05 PM EDT [facility] Special Stains To confirm the diagnosis of basal cell adenoma, beta catenin stain was performed with appropriate controls. Beta-catenin: Nuclear expression in neoplastic cells (in addition to cytoplasmic staining) This supports the diagnosis of basal cell adenoma. 1:05 PM EDT [facility] Disclaimer NOTE: The immunohistochemical tests and in situ hybridization tests were developed and their performance characteristics were determined by [facility]. They have not been cleared [...] fixed and paraffin embedded. 1:05 PM EDT [facility] Tissue Salivary gland structure / Unknown 09/08/2024 9:48 AM EDT 09/08/2024 11:22 AM EDT Tissue specimen (specimen) Salivary gland structure / Unknown 09/08/2024 9:51 AM EDT 09/08/2024 11:22 AM EDT us Anibal Perez MD LAB PATHOLOGY ORDERABLES Final Result [facility]) [facility] [address] [place] [address], * TH AN ENDOTRACHEAL(NO CHARGE) (09/08/2024 8:21 AM EDT) Narrative Nicko Teresa SRNA - 09/08/2024 8:21 AM EDT DEREK Hyde 09/08/2024 8:36 AM General Information and Staff Patient location during procedure: OR Resident/OUTSIDE COLLECTOR: DEREK Hyde Performed: resident/OUTSIDE COLLECTOR/CAA Performed by: DEREK Hyde Authorized by: Rayo [...] GEMUSE QTc 420 ms GEMUSE P Wave Tatum 58 degrees GEMUSE R Tatum -16 degrees GEMUSE T Tatum 21 degrees GEMUSE ECG Interpretation Sinus rhythm with 1st degree A-V block Otherwise normal ECG No previous ECGs available Confirmed by Abdi LEÓN YUFENG ([id number]) on 09/08/2024 7:32:00 PM GEMUSE 09/08/2024 6:42 AM EDT 09/08/2024 7:32 PM EDT Rayo White MD ECG ORDERABLES Final Result GEMUSE from Last 3 Months Insurance MEDICARE [facility] Advance Directives * Full Code - Confirmed [...] currently active code status orders. Care Teams Shipping And Receiving Relationship Specialty Start Date End Date Neftaly Bhagat FNP [address] [place] [address] [place] [address] PCP - General Family Medicine 09/07/24
--- OUTSIDE RECORDS SUMMARY | 2024-12-06 10:43 | XMS_ITS | Encounter Summary ---
Author Organization [employer] Address [address] [place] [address] [address] [address] Care Team Providers Care Quilting Machine Helper Name Role Phone Unavailable Primary Care Provider Unavailabl e Encounter Details Date Type Department Care Team (Latest Contact Info) Description 04/25/2019 Abstract [facility] CONVERSIONS Dental, Provider, DDS Social History Tobacco Use Types Packs/Day Years Used Date Smoking Tobacco: Never Assessed Sex and Gender Information Value Date Recorded Sex Assigned at Male 04/07/2022 10:22 AM EDT Legal Sex Male 10:22 AM EDT Gender Identity Not on file Sexual Orientation Straight 04/07/2022 10 :22 AM EDT documented as of this encounter Plan of Treatment Not on file documented as of this encounter Visit Diagnoses Not on filedocumented in this encounter
== END 2024-12-06 10:38 | disposition home or self-care (01) ==
LOC: HO.HCS 09:50
PROVIDERS: PCP Nurse Practitioner Family; Visit Provider Internal Medicine
DX: I49.8 Other specified cardiac arrhythmias (principal); I10 Essential (primary) hypertension; I26.99 Other pulmonary embolism without acute cor pulmonale; E66.01 Morbid (severe) obesity due to excess calories; G47.33 Obstructive sleep apnea (adult) (pediatric); Z99.89 Dependence on other enabling machines and devices
CPT/HCPCS: 93010; 99214; G2211

== ENCOUNTER → 2024-12-06 09:50 | Outpatient (BNVA) | payer OTHER, SELFPAY | PROVIDERS: PCP Nurse Practitioner Family; Visit Provider Internal Medicine | DX: I10 Essential (primary) hypertension (principal); I49.8 Other specified cardiac arrhythmias; I26.99 Other pulmonary embolism without acute cor pulmonale; E66.01 Morbid (severe) obesity due to excess calories; G47.33 Obstructive sleep apnea (adult) (pediatric); Z99.89 Dependence on other enabling machines and devices | CPT/HCPCS: 93005; 99212 ==

== ENCOUNTER 2025-05-12 06:45 | Outpatient (REF) | payer OTHER, SELFPAY ==
[2025-05-12 07:19] LABS: Hematocrit 40.3 % (42.0-52.0); Hemoglobin 11.6 g/dl (14.0-18.0); Mean Corpuscular HGB Conc 28.8 g/dl (31.0-36.0); Mean Corpuscular Hemoglobin 21.3 pg (27.0-33.0); Mean Corpuscular Volume 73.9 fL (80.0-98.0); NRBC Abs Auto 0.000 X10*3/uL (0.0-0.012); NRBC Pct Auto 0.0 /100WBC (0.0-0.2); Platelet Count 329 X10*3/uL (160-400); Red Blood Count 5.45 X10*6/uL (4.60-5.80); White Blood Count 7.2 X10*3/uL (4.8-10.8)
[2025-05-12 11:26] LABS: Prostate Specific Antigen 2.22 ng/mL (<0.05-4.0)
== END 2025-05-12 06:46 | disposition home or self-care (01) ==
LOC: HO.LAB 06:45
PROVIDERS: PCP Nurse Practitioner Family; Visit Provider Urology
DX: E29.1 Testicular hypofunction (principal); Z12.5 Encounter for screening for malignant neoplasm of prostate
CPT/HCPCS: 36415; 84153; 84403; 85027

== ENCOUNTER 2025-05-31 10:33 | Outpatient (AMB) | payer OTHER, SELFPAY ==
--- NOTE | 2025-05-31 10:34 | A.OFFVIS_ITS ---
Intake Visit Reasons: 6M PSA/Testo/CBC(set) Intake Note: Reason for Visit: Telehealth Labs follow up Urology Meds: Tadalafil Blood Thinners: Eliquis, Aspirin Labs: PSA: 2.22 Testosterone: 335 (05/12/2025) Imaging: None Last PVR: None Electric Cell Tender Required: No Allergies simvastatin (Simvastatin) Allergy (Intermediate, Verified 12/02/24 10:39) ELEVATED K+ LEVEL HPI Comments Details: Diego is a pleasant male.? He is a patient of Dr. Bhagat.? He seen for following urologic conditions - microscopic hematuria - hypogonadism - lower urinary tract symptoms - erectile dysfunction Telemedicine Evaluation 15 min Consultation DoxCyzone Asa Video Restarted injectables Had blood clot and had dosage reduced Has been on daily Cialis 5 mg Long discussion regarding weight loss using GLP-1s We will try to get testosterone enanthate since has lower likelihood of elevating hematocrit [place] [facility] 0.4 cc testosterone IM weekly Poor respond to testosterone gel with insufficient absorption Injection Thursday Lab day Lab work has not been checked during COVID Labs 02/27 T 230 PSA 0.32, 08/28 T 420 P 1.3 H 46, 02/28 T 460 P 1.7 H 49, 08/29 781 1.7 48, 09/30 252 2.1 53, 06/01 335 2.22 LUTS therapy finasteride Microscopic Hematuria:? Has been working with [facility] for hypogonadism ? Minimal nocturia and happy ? Can discuss testosterone when see him in 12 months ? 09/24 PSA .9 ? Microscopic hematuria was diagnosed during routine UA. ? Since the last visit the patient has has not noticed gross hematuria, does not test positive for microscopic hematuria ? Radiology report 02/23 CT , no genitourinary abnormality, large prostate. ? Other investigations 12/23 BUN/Cr - 1.1. ? Cystoscopy findings 02/23 large prostate. [facility] Medical History Pulmonary embolism CORKY on CPAP Diabetes Essential hypertension Morbid obesity PVCs (premature ventricular contractions) Atrial arrhythmia Surgical History Hx of total knee replacement History of cardiac catheterization (~07/15/17) History of umbilical hernia repair (~2009) History of colonoscopy (~2009) Family History Father Prostate CA Mother No problems noted. Social History Patient Tobacco Use Status: Former Tobacco user Review of Systems Const All systems reviewed & are unremarkable except as noted in HPI and below Reports no additional complaints Resp Reports no additional complaints GI Reports no additional complaints Reports as per HPI Musc Reports no additional complaints Physical Exam Telemedicine evaluation Appropriate responses Regular breathing rate and rhythm HEENT Head: Yes normal to inspection Ears: hearing grossly normal bilaterally Eyes General: appearance normal, both eyes and all related structures Neck Neck: Yes normal visual inspection Chest Chest palpation & inspection: normal inspection of the chest Resp Effort & Inspection: normal respiratory effort and able to speak in complete sentences Telehealth Telehealth Telehealth Platform: [employer] ([employer]) Location of provider rendering services: practice address Location of patient: address on file Patient Identification confirmed using: Name, : Yes Telehealth method: video Patient verbally consented to treatment: Yes Patient verbally consented to billing insurance company: Yes Patient informed of any privacy concerns related to visit: Yes Minutes spent on Phone/Video with Pt.: 15 Assessment & Plan Assessment & Plan (1) BPH w urinary obs/LUTS: Code(s): N40.1 - Benign prostatic hyperplasia with lower urinary tract symptoms; N13.8 - Other obstructive and reflux uropathy Category: Medical (2) Hypogonadism in male: Code(s): E29.1 - Testicular hypofunction Category: Medical Plan Six-month follow-up lab work office Orders: Orders Prostate Specific Antigen 5 Months E29.1 - Testicular hypofunction Testosterone, Total 5 Months E29.1 - Testicular hypofunction Hematocrit 5 Months E29.1 - Testicular hypofunction Medications: New testosterone enanthate (Xyosted) Patient has high HCT on test cypionate. There is data that HCT better with enanthate 50 mg (0.3333 mL) subcut QWEEK 1.666 mL 4RF 30 days E29.1 - Testicular hypofunction Patient Instructions: This note is constructed using voice recognition software. While every effort has been made to ensure accuracy events administrative assistant errors may have been included. Imaging studies, laboratory and physical exam results were discussed and reviewed in detail. No major barriers to patient understanding were identified. An opportunity to ask questions regarding the treatment plan was provided. All questions were answered. The patient expressed understanding and agreement with the above treatment plan. The patient is aware they should contact our office by phone for worsening of their current condition or the appearance of new urologic symptoms. Compliance is encouraged with any medications and followup testing that is ordered. It is a privilege to participate in the urologic care of your patient. If you have any questions or concerns regarding treatment for the above conditions, or other urologic issues, please do not hesitate to contact me. The office telephone contact is [phone]. Sincerely, Dr Suleiman Mitchell MD, [facility] - Urology Compassionate Specialist Care for the Genitourinary System Coding Level of Care Code Tele Est Pt Level 3 (07000) Add On Problem Visit Only Diagnoses BPH w urinary obs/LUTS N40.1; N13.8 Hypogonadism in male E29.1
--- OUTSIDE RECORDS SUMMARY | 2025-05-31 10:39 | XMS_ITS | Clinical Summary ---
Author Organization [facility] Address [address] [place] [address] Phone Care Team Providers Care Photograph Retoucher Name Role Phone Neftaly BhagatP Primary Care Provider +1 [phone] Allergies Active Allergy Reactions Criticality Noted Date [...] Date Diagnosed Date Hx of parotidectomy 09/08/2024 Surgical History Surgery Date Site/Laterality Comments KNEE ARTHROPLASTY Bilateral HERNIA REPAIR ABD Medical History Medical History Date Comments Abnormal findings on cardiac catheterization BPH (benign prostatic hyperplasia) Hyperlipidemia Hypertension Sleep apnea COPD (chronic obstructive pulmonary disease) ( [facility] V24, [facility] V28) Diabetes mellitus ([facility] V24, [facility] V28) GERD (gastroesophageal reflux disease) Depression PTSD (post-traumatic stress disorder) Arthritis Joint pain Social History Tobacco Use Types Packs/Day Years Used Date Smoking Tobacco: Former Cigarettes Tobacco Cessation:Counseling Given: Not Answered Alcohol Use Standard Drinks/Week Comments Not Currently 0 (1 standard drink = 0.6 oz pur e alcohol) Interpersonal Safety Answer Date Record ed Physical Abuse Unrecognized value 09/08/2024 Verbal Abuse Unrecognized value 09/08/2024 Sex and Gender Information Value Date Recorded Sex Assigned at Male 09/07/2024 10:23 AM EDT Legal Sex Male 7:45 AM EDT Gender Identity Male 09/07/2024 10:23 AM EDT Sexual Orientation Straight 09/07/2024 10 :23 AM EDT Last Filed Vital Signs Vital Sign Reading [...] Health Maintenance Due Date Last Done Comments Colorectal Cancer Screening: Colonoscopy 1955 Drug Screen 1955 Non-Opioid Controlled Substance Agreement 1954 Diabetes: Annual Foot Exam 1964 Diabetes: Annual Retina Eye Exam 1964 Depression Screening 06/08/2024 Abdominal Aortic Aneurysm (AAA) Screen 08/16/2024 Cholesterol Screening (Lipid Panel) 08/16/2024 Diabetes: Annual Urine Albumin-Creatinine Ratio (uACR) 08/16/2024 Diabetes: Blood Sugar Control Test (HGBA1C) 08/16/2024 Hepatitis C Screening 08/16/2024 Medicare Annual Wellness Visit 08/16/2024 Social Influencers of Health Screening 08/16/2024 COVID-19 Vaccine ( season) 2025 04/08/2023, 10/04/2021, 04/20/2021, Additional history exists Influenza Vaccine (#1) 2025 , 04/08/2023, 04/04/2022, [...] Procedure Name Priority Date/Time Associated Diagnosis Comments BASIC METABOLIC PANEL Routine 09/09/2024 6:43 AM EDT from Last 3 Months or Most Recently Relevant to Health Maintenance Results * (ABNORMAL) Basic metabolic panel (09/09/2024 6:43 AM EDT) Sodium 142 133 - 145 mmol/L LAB CHEMISTRY METHOD 09/09/2024 7:46 AM [facility] Potassium 4.3 3.5 - 5.5 mmol/L LAB CHEMISTRY METHOD 09/09/2024 7:46 AM [facility] Chloride 109 96 - 110 mmol/L LAB CHEMISTRY METHOD 09/09/2024 7:46 AM [facility] CO2 28 21 - 32 mmol/L LAB CHEMISTRY METHOD 09/09/2024 7:46 AM [facility] Anion Gap 5 3 - 11 LAB CHEMISTRY METHOD 09/09/2024 7:46 AM [facility] Glucose 114(H) 70 - 100 mg/dL LAB CHEMISTRY METHOD 09/09/2024 7:46 AM [facility] BUN 16 5 - 25 mg/dL LAB CHEMISTRY METHOD 09/09/2024 7:46 AM [facility] Creatinine 1.11 0.70 - 1.30 mg/dL LAB CHEMISTRY METHOD 09/09/2024 7:46 AM [facility] eGFR 71 >=60 mL/min/1. 73m2 LAB CHEMISTRY METHOD 09/09/2024 7:46 AM [facility] Comment:Calculation based on the Chronic Kidney Disease Epidemiology Collaboration (CKD-EPI) equation refit without adjustment for race. BUN/Creatinine Ratio 14.4 LAB CHEMISTRY METHOD 09/09/2024 7:46 AM EDT [facility] Calcium 9.1 8.5 - 10.5 mg/dL LAB CHEMISTRY METHOD 09/09/2024 7:46 AM EDT [facility] Blood Venous blood specimen / Unknown Venipuncture / Unknown 09/09/2024 6:43 AM EDT 09/09/2024 6:51 AM EDT us Karlos CRISTOBAL LAB BLOOD ORDERABLES Final Resu lt [facility] ([facility] [address] [place] [address], from Last 3 Months or Most Recently Relevant to Health Maintenance Insurance MEDICARE [facility] Advance Directives * Full Code - Confirmed [...] currently active code status orders. Care Teams Photograph Retoucher Relationship Specialty Start Date End Date Neftaly Bhagat FNP [address] [place] [address] PCP - General Family Medicine 09/07/24
--- OUTSIDE RECORDS SUMMARY | 2025-05-31 10:39 | XMS_ITS | Clinical Summary ---
Author Organization [employer] Address [address] [place] [address] [address] [place] [address] Care Team Providers Care Salesperson Floor Coverings Name Role Phone Unavailable Primary Care Provider Unavailabl e Social History Tobacco Use Types Packs/Day Years Used Date Smoking Tobacco: Never Assessed Sex and Gender Information Value Date Recorded Sex Assigned at Male 04/07/2022 10:22 AM EDT Legal Sex Male 10:22 AM EDT Gender Identity Not on file Sexual Orientation Straight 04/07/2022 10 :22 AM EDT Plan of Treatment Health Maintenance Due Date Last Done Comments CT Colonography 1954 Colonoscopy 1954 Colorectal Cancer Screening 1954 Depression Screening 1954 FIT DNA/Cologuard 1954 FIT 1954 FOBT 1954 Lipid Panel 1954 Sigmoidoscopy 1954 Alcohol/Substance Use Screening 1966 Tobacco Screening 1966 DTaP/Tdap/Td Vaccines (1 - Tdap) 1973 Pneumococcal Vaccine: 50+ Ye ars (1 of 1 - PCV) 2004 Zoster Vaccines (1 of 2) 2004 COVID-19 Vaccine ( - 2024-2 6 season) 2025 Influenza Vaccine (#1) 2025 RSV Patients and Pa tients Aged 60 years or older (1 - 1-dose 75+ series) 2029 HIB Vaccines Aged Out No longer eligi ble based on patient's age to complete this topic HPV Vaccines Aged Out No longer eligi ble based on patient's age to complete this topic Hepatitis A Vaccines Aged Out No long er eligible based on patient's age to complete this topic Hepatitis B Vaccines Aged Out No long er eligible based on patient's age to complete this topic IPV Vaccines Aged Out No longer eligi ble based on patient's age to complete this topic Meningococcal B Vaccine Aged Out No l onger eligible based on patient's age to complete this topic Meningococcal Vaccine Aged Out No cindy andrade eligible based on patient's age to complete this topic RSV under 20 months Aged Out No longe r eligible based on patient's age to complete this topic Rotavirus Vaccines Aged Out No longer eligible based on patient's age to complete this topic
--- OUTSIDE RECORDS SUMMARY | 2025-05-31 10:39 | XMS_ITS | Encounter Summary ---
Author Organization [employer] Address [address] [place] [address] [address] [address] Care Team Providers Care Sign Installer Name Role Phone Unavailable Primary Care Provider Unavailabl e Encounter Details Date Type Department Care Team (Latest Contact Info) Description 04/25/2019 Abstract [facility] CONVERSIONS Dental, Provider, DDS Social History [...]
== END 2025-05-31 11:50 | disposition home or self-care (01) ==
LOC: HO.HUSH 10:33
PROVIDERS: PCP Nurse Practitioner Family; Visit Provider Urology
DX: N40.1 Benign prostatic hyperplasia with lower urinary tract symptoms (principal); N13.8 Other obstructive and reflux uropathy; E29.1 Testicular hypofunction
CPT/HCPCS: 99213; G2211